=== PATIENT | male | born 1950 | race Caucasian/White ===

== ENCOUNTER 2017-12-14 08:48 | Emergency (ER) | payer MEDICARE, SELFPAY ==
[2017-12-14] VITALS (15 sets, daily range): BP systolic 131–151; BP diastolic 69–77; PULSE 55–67; RESP 12–27; TEMP 36.7; O2SAT 95–97
--- NOTE | 2017-12-14 09:24 | W.ED.GENAD ---
Discharge Plan Disposition Patient Disposition: HOME Condition: Stable Discharge Details Chief Complaint: Dizzy/Sync Clinical Impression: Lightheadedness Primary Care Provider: Lane Womack ED Provider: Theresa Perrin Home Meds and New Rx's Prescriptions: Continue naproxen sodium [Aleve] 220 MG tablet 220 mg PO Q12H PRN RF: 0 aspirin [Aspirin Low-Strength] 81 MG tablet,chewable 81 mg PO DAILY RF: 0 potassium gluconate 99 MG tablet 99 mg PO DAILY RF: 0 amlodipine 10 MG tablet 10 mg PO DAILY Qty: 90 RF: 3 tadalafil [Cialis] 5 MG tablet 5 mg PO DAILY Qty: 90 RF: 4 losartan [Cozaar] 25 MG tablet 50 mg PO DAILY Qty: 180 RF: 4 Discontinued carvedilol 12.5 MG tablet 12.5 mg PO BID Qty: 180 RF: 4 Discharge Instructions Instructions: Near Syncope (ED) Additional Instructions: Problem please return immediately to the emergency department if you develop any new or worsening symptoms or if you become otherwise concerned. It is extremely important that you make it from its was seen in follow-up by Dr. Hogan and Dr. Womack within the next 1-2 weeks. Referrals: Oswaldo Hogan MD [ NON-[facility] STAFF PHYSICIAN] - Lane Womack [Primary Care Provider] - Discharge Data Discharge Date/Time-TO BE ENTERED AT DEPARTURE: 12/14/17 14:[address] Poe is a 66 y/o man with h/o HTN, HLD, pacemaker in place presenting to the emergency department with one month of gradually progressive lightheadedness that he feels coincides with starting carvedilol. On exam Pt is well and non-toxic appearing with benign cardiopulmonary and neuro exam. Concern for dehydration vs metabolic/lyte disturbance vs PE vs other. Doubt ACS. Do not suspect arrhythmia at this time as Pt currently experiencing his typical symptoms while in NSR on monitor. Pacer recently checked per Pt, no buzzing, vibration, or shocks from pacer. Plan for EKG, CXR, screening labs, IVF hydration. Will monitor and reassess. D-dimer elevated, plan for CT chest. On reassessment Pt reports feeling improved. Ambulating about the ED without issue. Pt reports that he would like to stop carvedilol immediately. Lengthy discussion with Pt re: RTED precautions, plan to halve dose of carvedilol to prevent rebound HTN and f/u with cardiology and PCP for complaint of this visit and incidental findings on CT. Pt declined repeat EKG, states that he needs to leave to catch his ride, risks were discussed and he verbalizes understanding of the risks. Pt placed on care management list for outpt f/u. Medical Records Medical records reviewed: Yes I reviewed the patient's medical records. Imaging Data Radiologic Study: Attestation: I personally reviewed and interpreted this imaging study as follows: Radiologist's impression: PA AND LATERAL CHEST: No priors. The heart size and pulmonary vasculature are within normal limits. The lungs are clear and well expanded. Pacing wires are in stable position. The bones are intact. IMPRESSION: No acute pulmonary process. CT SCAN OF THE CHEST: CT angiography was performed with multi slice acquisition and multi planar and 3D reconstruction. CT scan of the chest was performed according to the pulmonary embolus protocol. There is no evidence of a pulmonary embolus. Thoracic aorta is of normal caliber. No dissection or aneurysm. The heart size is within normal limits. No pericardial effusion is seen. No evidence of right ventricular dysfunction. Coronary artery calcifications are present. Pacing wires are in stable position. No significant mediastinal or hilar adenopathy. No pleural effusion, pneumothorax or pulmonary infiltrates are identified. Tracheobronchial tree is unremarkable. Upper abdomen shows a 2.4 cm right adrenal nodule, likely reflecting an adrenal adenoma. There is also an exophytic hyperdense lesion seen on the superior aspect of the right kidney. This may represent a cyst. Renal ultrasound may be obtained for further evaluation. Degenerative changes are seen in the spine. IMPRESSION: 1. No evidence of a pulmonary embolus, thoracic aortic dissection or aneurysm. 2. Incidental findings in the upper abdomen, which include a probable right adrenal nodule and a 1.5 cm exophytic nodule on the left kidney, which may represent a cyst. Ultrasound may be obtained as an outpatient for further evaluation. Lab Data Lab results reviewed: Yes I reviewed the patient's lab results. Laboratory Tests Range/Units 12/14/17 12/14/17 12/14/17 09:49 09:49 09:49 WBC (4.4-10.8) k/cumm 9.10 RBC (4.50-6.00) m/cumm 4.58 Hgb (13.5-17.5) g/dL 14.3 Hct (40.0-50.0) % 41.7 MCV (80-95) fL 91.0 MCH (27.0-33.0) pg 31.2 MCHC (32.0-36.0) g/dL 34.3 RDW (11.8-14.1) % 12.1 Plt Count (130-400) x1000/uL 294 MPV (8.0-11.0) fL 10.6 Immature Gran % 0.2 Neutrophils % 63.8 Lymphocytes % 19.8 Monocytes % 7.8 Eosinophils % 7.4 Basophils % 1.0 Absolute Neutrophils (1.2-6.7) k/cumm 5.81 Absolute Lymphocytes (1.2-3.4) k/cumm 1.80 Absolute Monocytes (0.11-0.7) k/cumm 0.71 H Absolute Eosinophils (0.0-0.7) k/cumm 0.67 Absolute Basophils (0.0-0.2) k/cumm 0.09 D-Dimer (<500) ng/mlFEU 818 H Sodium (136-145) mmol/L 142 Potassium (3.5-5.1) mmol/L 3.8 Chloride (98-107) mmol/L 105 Carbon Dioxide (21.0-32.0) mmol/L 26.6 Anion Gap (3-11) mmol/L 10.4 BUN (7-18) mg/dL 17 Creatinine (0.70-1.30) mg/dL 0.85 Estimated GFR/1.73 m2 (mL/min/1.73m2) >= 60.00 Glucose (70-100) mg/dL 94 Calcium (8.5-10.1) mg/dL 9.2 Magnesium (1.8-2.4) mg/dL 1.9 Total Bilirubin (0.2-1.0) mg/dL 0.6 AST (15-37) U/L 49 H ALT (12-78) U/L 57 Alkaline Phosphatase (46-116) U/L 89 Troponin I (0.00-0.06) ng/mL < 0.02 Total Protein (6.4-8.2) g/dL 7.6 Albumin (3.4-5.0) g/dL 3.7 TSH (0.358-3.74) uIU/mL 2.52 Urine Color (Yellow) Urine Clarity Urine pH (5-8) Ur Specific [place] (1.005-1.025) Urine Protein (Negative) mg/dL Urine Ketones (Negative) mg/dL Urine Blood (Negative) Urine Nitrite (Negative) Urine Bilirubin (Negative) Urine Urobilinogen (Up TO 0.2) EU/dL Ur Leukocyte Esterase (Negative) Urine RBC (0-2) Urine WBC (0-5) HPF Ur Epithelial Cells (Negative) HPF Urine Crystals (Negative) HPF Urine Bacteria (Negative) HPF Urine Casts (Negative) LPF Urine Mucus (Negative) Urine Other (Negative) Ur Culture Indicated? Urine Glucose (Negative) mg/dL Range/Units 12/14/17 10:00 WBC (4.4-10.8) k/cumm RBC (4.50-6.00) m/cumm Hgb (13.5-17.5) g/dL Hct (40.0-50.0) % MCV (80-95) fL MCH (27.0-33.0) pg MCHC (32.0-36.0) g/dL RDW (11.8-14.1) % Plt Count (130-400) x1000/uL MPV (8.0-11.0) fL Immature Gran % Neutrophils % Lymphocytes % Monocytes % Eosinophils % Basophils % Absolute Neutrophils (1.2-6.7) k/cumm Absolute Lymphocytes (1.2-3.4) k/cumm Absolute Monocytes (0.11-0.7) k/cumm Absolute Eosinophils (0.0-0.7) k/cumm Absolute Basophils (0.0-0.2) k/cumm D-Dimer (<500) ng/mlFEU Sodium (136-145) mmol/L Potassium (3.5-5.1) mmol/L Chloride (98-107) mmol/L Carbon Dioxide (21.0-32.0) mmol/L Anion Gap (3-11) mmol/L BUN (7-18) mg/dL Creatinine (0.70-1.30) mg/dL Estimated GFR/1.73 m2 (mL/min/1.73m2) Glucose (70-100) mg/dL Calcium (8.5-10.1) mg/dL Magnesium (1.8-2.4) mg/dL Total Bilirubin (0.2-1.0) mg/dL AST (15-37) U/L ALT (12-78) U/L Alkaline Phosphatase (46-116) U/L Troponin I (0.00-0.06) ng/mL Total Protein (6.4-8.2) g/dL Albumin (3.4-5.0) g/dL TSH (0.358-3.74) uIU/mL Urine Color (Yellow) Yellow Urine Clarity Clear Urine pH (5-8) 6.5 Ur Specific [place] (1.005-1.025) 1.020 Urine Protein (Negative) mg/dL 30 H Urine Ketones (Negative) mg/dL Negative Urine Blood (Negative) Trace-intact H Urine Nitrite (Negative) Negative Urine Bilirubin (Negative) Negative Urine Urobilinogen (Up TO 0.2) EU/dL 0.2 Ur Leukocyte Esterase (Negative) Negative Urine RBC (0-2) 5-10 H Urine WBC (0-5) HPF 0-2 Ur Epithelial Cells (Negative) HPF Rare Urine Crystals (Negative) HPF Negative Urine Bacteria (Negative) HPF Negative Urine Casts (Negative) LPF Negative Urine Mucus (Negative) Trace Urine Other (Negative) Negative Ur Culture Indicated? No Urine Glucose (Negative) mg/dL Negative ECG Data Attestation: I personally reviewed and interpreted this ECG (s) as follows: Interpretation: EKG shows SB at 57 with nl axis, RBBB, non specific ST changes, no Brugada, no HOCM, no long QT, no WPW. non-diagnostic EKG HPI General Mode of arrival: ambulatory. Date/Time Provider Initiated Documentation: 12/14/17 09:24. Limitations to Documentation: no limitations. Information obtained by: patient, RN notes reviewed and old records reviewed. HPI Narrative: Lane Poe is a 66-year-old man with history of hypertension, hyperlipidemia presenting to the emergency department with lightheadedness patient reports that he was prescribed carvedilol and atorvastatin 1 month ago. He reports that since the addition of these medications, he has been feeling lightheaded, increasingly sleepy during the day, and overall unwell. This is been progressive over time. Patient reports that symptoms are much worse when he is standing, and that he feels better when he is sitting or lying down. Patient also reports that he had previously been drinking heavily (he reports half a case of beer per day) and smoking a lot of marijuana, but because of these symptoms that began 1 month ago, patient stopped drinking and using marijuana 2 weeks ago. Patient reports no improvement in his system symptoms since stopping. He denies pain, focal weakness, numbness/tingling, shortness of breath, cough, nausea/vomiting/diarrhea, vertigo. No recent travel. Has been eating and drinking normally. Related Data Home Medications Medication Instructions Recorded Confirmed aspirin [Aspirin Low-Strength] 81 mg PO DAILY tab-cap 07/02/15 12/23/17 naproxen sodium [Aleve] 220 mg PO Q12H PRN tab-cap 07/02/15 12/23/17 potassium gluconate 99 mg PO DAILY 12/10/15 12/23/17 amlodipine 10 mg PO DAILY #90 tab-cap 07/29/17 12/23/17 tadalafil [Cialis] 5 mg PO DAILY #90 tab-cap 10/06/17 12/23/17 losartan [Cozaar] 50 mg PO DAILY #180 tab-cap 10/20/17 12/23/17 Previous Rx's Medication Instructions Recorded amlodipine 10 mg PO DAILY #90 tab-cap 07/29/17 tadalafil [Cialis] 5 mg PO DAILY #90 tab-cap 10/06/17 losartan [Cozaar] 50 mg PO DAILY #180 tab-cap 10/20/17 Allergies Allergy/AdvReac Type Severity Reaction Status Date / Time Penicillins AdvReac Mild hands red Unverified 12/14/17 09:00 and itchy tetracycline AdvReac Mild red and Unverified 12/14/17 09:00 itchy General Stated Complaint: Dizzy/Sync LEONARD: 2 Review of Systems Review of Systems Constitutional: denies fevers Eyes: denies eye pain ENT: denies facial pain, dental pain, sore throat Cardiovascular: denies chest pain, edema Respiratory: denies SOB, cough GI: denies abdominal pain, vomiting, diarrhea : denies flank pain MSK: denies back pain, neck pain, arthralgias, myalgias Skin: denies rash Neuro: denies headaches, focal weakness, reports lightheadedness PFSH Social History Smoking/Tobacco Use Status: Current, status unknown Exam Narrative Exam Narrative: Constitutional: well and [id number], pleasant, conversing normally HENT: head atraumatic, normocephalic normal inspection, mucous membranes moist Eyes: conjunctiva normal, sclera normal, pupils 3mm b/l Neck: no stridor, normal ROM, trachea midline Chest: normal inspection Resp: normal work of breathing, LCTAB Cardio: normal rate, normal rhythm, no murmur appreciated GI: abdomen soft, non-tender, non-distended Back: normal inspection, no rash Skin: warm, dry, normal color, no rash Neuro: alert, not altered, normal tone, motor 5/5 all ext, 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, nl finger to nose, nl heel to gonzalez Ext: no edema Psych: normal mood, normal affect, normal behavior Course Vital Signs Temperature 36.7 C 12/14/17 08:54 Pulse 66 12/14/17 08:54 Respiratory Rate 14 12/14/17 08:54 Blood Pressure 149/72 H 12/14/17 08:54 Pulse Oximetry 97 12/14/17 08:54 Temperature 36.7 C 12/14/17 08:54 Temperature Source Temporal Artery Scan 12/14/17 08:54 Pulse 66 12/14/17 08:54 Respiratory Rate 14 12/14/17 08:54 Respiratory Effort Non-Labored 12/14/17 08:58 Blood Pressure 149/72 H 12/14/17 08:54 Blood Pressure Position Sitting 12/14/17 08:54 Pulse Oximetry 97 12/14/17 08:54 Oxygen Delivery Method Room Air 12/14/17 08:54 Oxygen Flow Rate 0 12/14/17 08:54 Pain Level 0 12/14/17 08:54
--- NOTE | 2017-12-14 09:53 | ED.GENADUL_ITS ---
Discharge Plan Disposition Patient Disposition: HOME Condition: Stable Discharge Details Chief Complaint: Dizzy/Sync Clinical Impression: Lightheadedness Primary Care Provider: Lane Womack ED Provider: Theresa Perrin Home Meds and New Rx's Prescriptions: Continue naproxen sodium [Aleve] 220 MG tablet 220 mg PO Q12H PRN RF: 0 aspirin [Aspirin Low-Strength] 81 MG tablet,chewable 81 mg PO DAILY RF: 0 potassium gluconate 99 MG tablet 99 mg PO DAILY RF: 0 amlodipine 10 MG tablet 10 mg PO DAILY Qty: 90 RF: 3 tadalafil [Cialis] 5 MG tablet 5 mg PO DAILY Qty: 90 RF: 4 losartan [Cozaar] 25 MG tablet 50 mg PO DAILY Qty: 180 RF: 4 Discontinued carvedilol 12.5 MG tablet 12.5 mg PO BID Qty: 180 RF: 4 Discharge Instructions Instructions: Near Syncope (ED) Additional Instructions: Problem please return immediately to the emergency department if you develop any new or worsening symptoms or if you become otherwise concerned. It is extremely important that you make it from its was seen in follow-up by Dr. Hogan and Dr. Womack within the next 1-2 weeks. Referrals: Oswaldo Hogan MD [ NON-[facility] STAFF PHYSICIAN] - Lane Womack [Primary Care Provider] - Discharge Data Discharge Date/Time-TO BE ENTERED AT DEPARTURE: 12/14/17 14:[address] Poe is a 66 y/o man with h/o HTN, HLD, pacemaker in place presenting to the emergency department with one month of gradually progressive lightheadedness that he feels coincides with starting carvedilol. On exam Pt is well and non-toxic appearing with benign cardiopulmonary and neuro exam. Concern for dehydration vs metabolic/lyte disturbance vs PE vs other. Doubt ACS. Do not suspect arrhythmia at this time as Pt currently experiencing his typical symptoms while in NSR on monitor. Pacer recently checked per Pt, no buzzing, vibration, or shocks from pacer. Plan for EKG, CXR, screening labs, IVF hydration. Will monitor and reassess. D-dimer elevated, plan for CT chest. On reassessment Pt reports feeling improved. Ambulating about the ED without issue. Pt reports that he would like to stop carvedilol immediately. Lengthy discussion with Pt re: RTED precautions, plan to halve dose of carvedilol to prevent rebound HTN and f/u with cardiology and PCP for complaint of this visit and incidental findings on CT. Pt declined repeat EKG, states that he needs to leave to catch his ride, risks were discussed and he verbalizes understanding of the risks. Pt placed on care management list for outpt f/u. Medical Records Medical records reviewed: Yes I reviewed the patient's medical records. Imaging Data Radiologic Study: Attestation: I personally reviewed and interpreted this imaging study as follows: Radiologist's impression: PA AND LATERAL CHEST: No priors. The heart size and pulmonary vasculature are within normal limits. The lungs are clear and well expanded. Pacing wires are in stable position. The bones are intact. IMPRESSION: No acute pulmonary process. CT SCAN OF THE CHEST: CT angiography was performed with multi slice acquisition and multi planar and 3D reconstruction. CT scan of the chest was performed according to the pulmonary embolus protocol. There is no evidence of a pulmonary embolus. Thoracic aorta is of normal caliber. No dissection or aneurysm. The heart size is within normal limits. No pericardial effusion is seen. No evidence of right ventricular dysfunction. Coronary artery calcifications are present. Pacing wires are in stable position. No significant mediastinal or hilar adenopathy. No pleural effusion , pneumothorax or pulmonary infiltrates are identified. Tracheobronchial tree is unremarkable. Upper abdomen shows a 2.4 cm right adrenal nodule, likely reflecting an adrenal adenoma. There is also an exophytic hyperdense lesion seen on the superior aspect of the right kidney. This may represent a cyst. Renal ultrasound may be obtained for further evaluation. Degenerative changes are seen in the spine. IMPRESSION: 1. No evidence of a pulmonary embolus, thoracic aortic dissection or aneurysm. 2. Incidental findings in the upper abdomen, which include a probable right adrenal nodule and a 1.5 cm exophytic nodule on the left kidney, which may represent a cyst. Ultrasound may be obtained as an outpatient for further evaluation. Lab Data Lab results reviewed: Yes I reviewed the patient's lab results. Laboratory Tests Range/Units 12/14/17 12/14/17 12/14/17 09:49 09:49 09:49 WBC (4.4-10.8) k/cumm 9.10 RBC (4.50-6.00) m/cumm 4.58 Hgb (13.5-17.5) g/dL 14.3 Hct (40.0-50.0) % 41.7 MCV (80-95) fL 91.0 MCH (27.0-33.0) pg 31.2 MCHC (32.0-36.0) g/dL 34.3 RDW (11.8-14.1) % 12.1 Plt Count (130-400) x1000/uL 294 MPV (8.0-11.0) fL 10.6 Immature Gran % 0.2 Neutrophils % 63.8 Lymphocytes % 19.8 Monocytes % 7.8 Eosinophils % 7.4 Basophils % 1.0 Absolute Neutrophils (1.2-6.7) k/cumm 5.81 Absolute Lymphocytes (1.2-3.4) k/cumm 1.80 Absolute Monocytes (0.11-0.7) k/cumm 0.71 H Absolute Eosinophils (0.0-0.7) k/cumm 0.67 Absolute Basophils (0.0-0.2) k/cumm 0.09 D-Dimer (<500) ng/mlFEU 818 H Sodium (136-145) mmol/L 142 Potassium (3.5-5.1) mmol/L 3.8 Chloride (98-107) mmol/L 105 Carbon Dioxide (21.0-32.0) mmol/L 26.6 Anion Gap (3-11) mmol/L 10.4 BUN (7-18) mg/dL 17 Creatinine (0.70-1.30) mg/dL 0.85 Estimated GFR/1.73 m2 (mL/min/1.73m2) >= 60.00 Glucose (70-100) mg/dL 94 Calcium (8.5-10.1) mg/dL 9.2 Magnesium (1.8-2.4) mg/dL 1.9 Total Bilirubin (0.2-1.0) mg/dL 0.6 AST (15-37) U/L 49 H ALT (12-78) U/L 57 Alkaline Phosphatase (46-116) U/L 89 Troponin I (0.00-0.06) ng/mL < 0.02 Total Protein (6.4-8.2) g/dL 7.6 Albumin (3.4-5.0) g/dL 3.7 TSH (0.358-3.74) uIU/mL 2.52 Urine Color (Yellow) Urine Clarity Urine pH (5-8) Ur Specific [place] (1.005-1.025) Urine Protein (Negative) mg/dL Urine Ketones (Negative) mg/dL Urine Blood (Negative) Urine Nitrite (Negative) Urine Bilirubin (Negative) Urine Urobilinogen (Up TO 0.2) EU/dL Ur Leukocyte Esterase (Negative) Urine RBC (0-2) Urine WBC (0-5) HPF Ur Epithelial Cells (Negative) HPF Urine Crystals (Negative) HPF Urine Bacteria (Negative) HPF Urine Casts (Negative) LPF Urine Mucus (Negative) Urine Other (Negative) Ur Culture Indicated? Urine Glucose (Negative) mg/dL Range/Units 12/14/17 10:00 WBC (4.4-10.8) k/cumm RBC (4.50-6.00) m/cumm Hgb (13.5-17.5) g/dL Hct (40.0-50.0) % MCV (80-95) fL MCH (27.0-33.0) pg MCHC (32.0-36.0) g/dL RDW (11.8-14.1) % Plt Count (130-400) x1000/uL MPV (8.0-11.0) fL Immature Gran % Neutrophils % Lymphocytes % Monocytes % Eosinophils % Basophils % Absolute Neutrophils (1.2-6.7) k/cumm Absolute Lymphocytes (1.2-3.4) k/cumm Absolute Monocytes (0.11-0.7) k/cumm Absolute Eosinophils (0.0-0.7) k/cumm Absolute Basophils (0.0-0.2) k/cumm D-Dimer (<500) ng/mlFEU Sodium (136-145) mmol/L Potassium (3.5-5.1) mmol/L Chloride (98-107) mmol/L Carbon Dioxide (21.0-32.0) mmol/L Anion Gap (3-11) mmol/L BUN (7-18) mg/dL Creatinine (0.70-1.30) mg/dL Estimated GFR/1.73 m2 (mL/min/1.73m2) Glucose (70-100) mg/dL Calcium (8.5-10.1) mg/dL Magnesium (1.8-2.4) mg/dL Total Bilirubin (0.2-1.0) mg/dL AST (15-37) U/L ALT (12-78) U/L Alkaline Phosphatase (46-116) U/L Troponin I (0.00-0.06) ng/mL Total Protein (6.4-8.2) g/dL Albumin (3.4-5.0) g/dL TSH (0.358-3.74) uIU/mL Urine Color (Yellow) Yellow Urine Clarity Clear Urine pH (5-8) 6.5 Ur Specific [place] (1.005-1.025) 1.020 Urine Protein (Negative) mg/dL 30 H Urine Ketones (Negative) mg/dL Negative Urine Blood (Negative) Trace-intact H Urine Nitrite (Negative) Negative Urine Bilirubin (Negative) Negative Urine Urobilinogen (Up TO 0.2) EU/dL 0.2 Ur Leukocyte Esterase (Negative) Negative Urine RBC (0-2) 5-10 H Urine WBC (0-5) HPF 0-2 Ur Epithelial Cells (Negative) HPF Rare Urine Crystals (Negative) HPF Negative Urine Bacteria (Negative) HPF Negative Urine Casts (Negative) LPF Negative Urine Mucus (Negative) Trace Urine Other (Negative) Negative Ur Culture Indicated? No Urine Glucose (Negative) mg/dL Negative ECG Data Attestation: I personally reviewed and interpreted this ECG (s) as follows: Interpretation: EKG shows SB at 57 with nl axis, RBBB, non specific ST changes, no Brugada, no HOCM, no long QT, no WPW. non-diagnostic EKG HPI General Mode of arrival: ambulatory . Date/Time Provider Initiated Documentation: 12/14/17 09:24 . Limitations to Documentation: no limitations . Information obtained by: patient, RN notes reviewed and old records reviewed . HPI Narrative: Lane Poe is a 66-year-old man with history of hypertension, hyperlipidemia presenting to the emergency department with lightheadedness patient reports that he was prescribed carvedilol and atorvastatin 1 month ago. He reports that since the addition of these medications, he has been feeling lightheaded, increasingly sleepy during the day, and overall unwell. This is been progressive over time. Patient reports that symptoms are much worse when he is standing, and that he feels better when he is sitting or lying down. Patient also reports that he had previously been drinking heavily (he reports half a case of beer per day) and smoking a lot of marijuana, but because of these symptoms that began 1 month ago, patient stopped drinking and using marijuana 2 weeks ago. Patient reports no improvement in his system symptoms since stopping. He denies pain, focal weakness, numbness/tingling, shortness of breath, cough, nausea/vomiting/diarrhea, vertigo. No recent travel. Has been eating and drinking normally. Related Data Home Medications Medication Instructions Recorded Confirmed aspirin [Aspirin Low-Strength] 81 mg PO DAILY tab-cap 07/02/15 12/23/17 naproxen sodium [Aleve] 220 mg PO Q12H PRN tab-cap 07/02/15 12/23/17 potassium gluconate 99 mg PO DAILY 12/10/15 12/23/17 amlodipine 10 mg PO DAILY #90 tab-cap 07/29/17 12/23/17 tadalafil [Cialis] 5 mg PO DAILY #90 tab-cap 10/06/17 12/23/17 losartan [Cozaar] 50 mg PO DAILY #180 tab-cap 10/20/17 12/23/17 Previous Rx's Medication Instructions Recorded amlodipine 10 mg PO DAILY #90 tab-cap 07/29/17 tadalafil [Cialis] 5 mg PO DAILY #90 tab-cap 10/06/17 losartan [Cozaar] 50 mg PO DAILY #180 tab-cap 10/20/17 Allergies Allergy/AdvReac Type Severity Reaction Status Date / Time Penicillins AdvReac Mild hands red Unverified 12/14/17 09:00 and itchy tetracycline AdvReac Mild red and Unverified 12/14/17 09:00 itchy General Stated Complaint: Dizzy/Sync LEONARD: 2 Review of Systems Review of Systems Constitutional: denies fevers Eyes: denies eye pain ENT: denies facial pain, dental pain, sore throat Cardiovascular: denies chest pain, edema Respiratory: denies SOB, cough GI: denies abdominal pain, vomiting, diarrhea : denies flank pain MSK: denies back pain, neck pain, arthralgias, myalgias Skin: denies rash Neuro: denies headaches, focal weakness, reports lightheadedness PFSH Social History Smoking/Tobacco Use Status: Current, status unknown Exam Narrative Exam Narrative: Constitutional: well and [id number], pleasant, conversing normally HENT: head atraumatic, normocephalic normal inspection, mucous membranes moist Eyes: conjunctiva normal, sclera normal, pupils 3mm b/l Neck: no stridor, normal ROM, trachea midline Chest: normal inspection Resp: normal work of breathing, LCTAB Cardio: normal rate, normal rhythm, no murmur appreciated GI: abdomen soft, non-tender, non-distended Back: normal inspection, no rash Skin: warm, dry, normal color, no rash Neuro: alert, not altered, normal tone, motor 5/5 all ext, 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, nl finger to nose, nl heel to gonzalez Ext: no edema Psych: normal mood, normal affect, normal behavior Course Vital Signs Temperature 36.7 C 12/14/17 08:54 Pulse 66 12/14/17 08:54 Respiratory Rate 14 12/14/17 08:54 Blood Pressure 149/72 H 12/14/17 08:54 Pulse Oximetry 97 12/14/17 08:54 Temperature 36.7 C 12/14/17 08:54 Temperature Source Temporal Artery Scan 12/14/17 08:54 Pulse 66 12/14/17 08:54 Respiratory Rate 14 12/14/17 08:54 Respiratory Effort Non-Labored 12/14/17 08:58 Blood Pressure 149/72 H 12/14/17 08:54 Blood Pressure Position Sitting 12/14/17 08:54 Pulse Oximetry 97 12/14/17 08:54 Oxygen Delivery Method Room Air 12/14/17 08:54 Oxygen Flow Rate 0 12/14/17 08:54 Pain Level 0 12/14/17 08:54
[2017-12-14 10:10] LABS: Abs Immature Grans 0.02 k/cumm (0.0-0.09); Absolute Basophil Count 0.09 k/cumm (0.0-0.2); Absolute Eosinophil Count 0.67 k/cumm (0.0-0.7); Absolute Monocyte Count 0.71 k/cumm (0.11-0.7); Absolute Neutrophil Count 5.81 k/cumm (1.2-6.7); Eosinophils % 7.4; HCT 41.7 % (40.0-50.0); HGB 14.3 g/dL (13.5-17.5); Immature Grans % 0.2; Lymphocytes % 19.8; Mean Corp. HGB Concentration 34.3 g/dL (32.0-36.0); Mean Corpuscular Hemoglobin 31.2 pg (27.0-33.0); Mean Platelet Volume 10.6 fL (8.0-11.0); Monocytes % 7.8; Neutrophils % 63.8; Platelet Count 294 x1000/uL (130-400); RBC 4.58 m/cumm (4.50-6.00); RBC Distribution Width 12.1 % (11.8-14.1)
--- NOTE | 2017-12-14 10:20 | DI.RAD_ITS ---
SYMPTOMS/DIAGNOSIS: GENERALIZED WEAKNESS, PRE SYNCOPE PA AND LATERAL CHEST: No priors. The heart size and pulmonary vasculature are within normal limits. The lungs are clear and well expanded. Pacing wires are in stable position. The bones are intact. IMPRESSION: No acute pulmonary process.
[2017-12-14 10:27] LABS: Bilirubin Negative (Negative); Blood Trace-intact (Negative); Clarity Clear; Glucose Negative (Negative); Ketones Negative (Negative); Leukocyte Esterase Negative (Negative); Nitrite Negative (Negative); Urobilinogen 0.2 EU/dL (Up TO 0.2); pH 6.5 (5-8)
[2017-12-14 10:30] LABS: ALT 57 U/L (12-78); AST 49 U/L (15-37); Albumin 3.7 g/dL (3.4-5.0); Alkaline Phosphatase 89 U/L (46-116); Anion Gap 10.4 mmol/L (3-11); BUN 17 mg/dL (7-18); Bilirubin, Total 0.6 mg/dL (0.2-1.0); CO2 26.6 mmol/L (21.0-32.0); CREATININE 0.85 mg/dL (0.70-1.30); Calcium 9.2 mg/dL (8.5-10.1); Chloride 105 mmol/L (98-107); Glucose 94 mg/dL (70-100); Magnesium 1.9 mg/dL (1.8-2.4); Potassium 3.8 mmol/L (3.5-5.1); Sodium 142 mmol/L (136-145); TSH (W/Ref FT4) 2.52 uIU/mL (0.358-3.74); Total Protein 7.6 g/dL (6.4-8.2)
[2017-12-14 10:33] LABS: Troponin I < 0.02 ng/mL (0.00-0.06)
[2017-12-14 10:51] LABS: D-Dimer 818 ng/mlFEU (<500)
[2017-12-14 11:02] LABS: Epithelial Cells Rare HPF (Negative); WBC 0-2 HPF (0-5)
[2017-12-14 11:03] LABS: Bacteria Negative HPF (Negative); C & S Indicated? No; Casts Negative LPF (Negative); Crystals Negative HPF (Negative); Mucus Trace (Negative); Other Cells Negative (Negative)
--- NOTE | 2017-12-14 11:32 | DI.CT_ITS ---
SYMPTOMS/DIAGNOSIS: FATIGUE, LIGHTHEADEDNESS, ELEVATED D-DIMER CT SCAN OF THE CHEST: CT angiography was performed with multi slice acquisition and multi planar and 3D reconstruction. CT scan of the chest was performed according to the pulmonary embolus protocol. There is no evidence of a pulmonary embolus. Thoracic aorta is of normal caliber. No dissection or aneurysm. The heart size is within normal limits. No pericardial effusion is seen. No evidence of right ventricular dysfunction. Coronary artery calcifications are present. Pacing wires are in stable position. No significant mediastinal or hilar adenopathy. No pleural effusion , pneumothorax or pulmonary infiltrates are identified. Tracheobronchial tree is unremarkable. Upper abdomen shows a 2.4 cm right adrenal nodule, likely reflecting an adrenal adenoma. There is also an exophytic hyperdense lesion seen on the superior aspect of the right kidney. This may represent a cyst. Renal ultrasound may be obtained for further evaluation. Degenerative changes are seen in the spine. IMPRESSION: 1. No evidence of a pulmonary embolus, thoracic aortic dissection or aneurysm. 2. Incidental findings in the upper abdomen, which include a probable right adrenal nodule and a 1.5 cm exophytic nodule on the left kidney, which may represent a cyst. Ultrasound may be obtained as an outpatient for further evaluation. These findings were discussed with the Emergency Department on the date of the examination.
[2017-12-14] MEDS: Omnipaque 350 MG/ML 100 ML BTL IJ (12:11)
[2017-12-14] MEDS: Cyanocobalamin 1000 MCG/ML VIAL IM/SC (14:24)
--- NOTE | 2017-12-14 15:23 | PDOC.ERCMPRO ---
Care Management Progress Note 12/14/17-Pt seen for lightheadedness by Dr. Naveen Perrin. Request for f/u faxed to Dr.J. Womack and Cardiology.
== END 2017-12-14 14:26 | disposition home or self-care (01) ==
PROVIDERS: Emergency Provider Student in an Organized Health Care Education/Training Program; PCP Family Medicine
DX: R42 Dizziness and giddiness (principal); R79.1 Abnormal coagulation profile; R93.421 Abnormal radiologic findings on diagnostic imaging of right kidney; I10 Essential (primary) hypertension; I25.10 Atherosclerotic heart disease of native coronary artery without angina pectoris; Z95.5 Presence of coronary angioplasty implant and graft; Z95.810 Presence of automatic (implantable) cardiac defibrillator
CPT/HCPCS: 71275; 80053; 93005; 96372; 99285; 71046; 81003; 81015; 83735; 84443; 84484; 85025; 85379; 93010; J3420; J3490

== ENCOUNTER 2017-12-21 00:47 | Outpatient (CLI) | payer MEDICARE, SELFPAY ==
--- NOTE | 2017-12-21 13:06 | DI.US_ITS ---
SYMPTOM/DIAGNOSIS: RENAL CYST, N28.1, NODULE VS CYST RT KIDNEY RENAL ULTRASOUND: 12/21 Renal ultrasound was performed according to the usual protocol. Note is made of 17 mm in diameter exophytic cyst of the upper pole of the left kidney corresponding to the mildly hyperdense mass identified on CT of 12/14/17. No evidence of a solid mass by ultrasound criteria. Small cortical cyst is also seen in the lower pole of the left kidney. No other renal mass identified. No hydronephrosis. Urinary bladder is unremarkable in appearance with pre and post void urinary bladder volume measurements 111 cc and 0 cc respectively. Prostatic volume is calculated at 28 cc. CONCLUSION: Hyperdense homogeneous lesion of the upper pole of the left kidney seen on CT corresponds to a simple cyst identified ultrasonographically. No additional significant finding.
== END 2017-12-21 01:07 ==
PROVIDERS: PCP Family Medicine; Visit Provider Family Medicine
DX: N28.1 Cyst of kidney, acquired (principal); I25.10 Atherosclerotic heart disease of native coronary artery without angina pectoris; Z95.5 Presence of coronary angioplasty implant and graft; Z95.0 Presence of cardiac pacemaker; I50.30 Unspecified diastolic (congestive) heart failure; I11.0 Hypertensive heart disease with heart failure; I73.9 Peripheral vascular disease, unspecified; R53.1 Weakness
CPT/HCPCS: 76770; 99213

== ENCOUNTER 2017-12-23 12:08 | Emergency (ER) | payer MEDICARE, SELFPAY ==
[2017-12-23 12:15] VITALS: BP 135/73; PULSE 80; RESP 16; TEMP 36.6; O2SAT 97
--- NOTE | 2017-12-23 12:24 | ED.GENADUL_ITS ---
Discharge Plan Disposition Patient Disposition: HOME Condition: Good Discharge Details Chief Complaint: Laceration Clinical Impression: Skin tear Primary Care Provider: Lane Womack ED Provider: Tahmina Simms Home Meds and New Rx's Prescriptions: Continue naproxen sodium [Aleve] 220 MG tablet 220 mg PO Q12H PRN RF: 0 aspirin [Aspirin Low-Strength] 81 MG tablet,chewable 81 mg PO DAILY RF: 0 potassium gluconate 99 MG tablet 99 mg PO DAILY RF: 0 amlodipine 10 MG tablet 10 mg PO DAILY Qty: 90 RF: 3 losartan [Cozaar] 25 MG tablet 50 mg PO DAILY Qty: 180 RF: 4 No Action tadalafil [Cialis] 5 MG tablet 5 mg PO DAILY Qty: 90 RF: 4 Discharge Instructions Instructions: Skin Tear (ED) Additional Instructions: Keep current dressing on for the next 24 hours. May then remove the dressing. Please monitor for signs of infection including redness, warmth, drainage, increased pain, fever/chills. If these arise please seek care urgently once again. Please use nonadhesive dressings as needed to cover the wound. May wash and running water but please do not soak as this will increase her risk of infection. Follow-up with primary care as needed Referrals: Lane Womack [Primary Care Provider] - Medical Decision Making Patient is a 67 year old male presenting today with chief complaint of bleeding wound on the dorsal aspect of the left hand. He is noted to have a 12mm circumfrential area of skin tear. Appears very superficial, no subcutaneous tissue noted. He reports that he has a bandaid over a small opening in the proximal aspect of the thumb. REprots that he suffered current wound when he removed the bandaid 3 hours ago. Has been applying pressure to the area but continues to endorse bleeding. Bleeding is a slow ooze. Sensation intact. Full ROM. 2+ distal pulses. No signs of infection noted. Patient reports that his last tetanus was updated one year ago. Patient is not anticoagulated. Patient treated with gelfoam over the wound followed by compressive dressing. ADvised he keep this on for the next 24 hours. Discussed signs and symptoms of infection and when to seek care urgently once again. Also discussed how to tend ot the wound should bleeding occur once again. Advised he may return at any time with new/worsening symptoms. All of his questions and concerns were addressed, he is in agreement with this plan. Advised no further adhesive be applied to his hand. HPI General Mode of arrival: ambulatory . Date/Time Provider Initiated Documentation: 12/23/17 12:14 . Limitations to Documentation: no limitations . Information obtained by: patient . History of Present Illness 67 year old M presents to the emergency department with the chief complaint of bleeding left hand abrasion, described as mild, with intensity rated at 1 ( denies any pain at this time). and is localized to the left. Patient started experiencing this hour(s) (3) and it has been constant. Patient notes no other symptoms.; denies fever/chills and rash. Patient did receive the following treatments prior to arrival, other (has been applying pressure to wound) Related Data Home Medications Medication Instructions Recorded Confirmed aspirin [Aspirin Low-Strength] 81 mg PO DAILY tab-cap 07/02/15 12/23/17 naproxen sodium [Aleve] 220 mg PO Q12H PRN tab-cap 07/02/15 12/23/17 potassium gluconate 99 mg PO DAILY 12/10/15 12/23/17 amlodipine 10 mg PO DAILY #90 tab-cap 07/29/17 12/23/17 tadalafil [Cialis] 5 mg PO DAILY #90 tab-cap 10/06/17 12/23/17 losartan [Cozaar] 50 mg PO DAILY #180 tab-cap 10/20/17 12/23/17 Previous Rx's Medication Instructions Recorded amlodipine 10 mg PO DAILY #90 tab-cap 07/29/17 tadalafil [Cialis] 5 mg PO DAILY #90 tab-cap 10/06/17 losartan [Cozaar] 50 mg PO DAILY #180 tab-cap 10/20/17 Allergies Allergy/AdvReac Type Severity Reaction Status Date / Time Penicillins AdvReac Mild hands red Unverified 12/14/17 09:00 and itchy tetracycline AdvReac Mild red and Unverified 12/14/17 09:00 itchy General Stated Complaint: Laceration LEONARD: 4 Review of Systems Constitutional Denies chills and Denies fever(s) Musculoskeletal Reports as per HPI, Denies numbness and Denies tingling Integumentary/Breasts Reports as per HPI Neurologic Denies numbness and Denies tingling PFSH Social History Smoking/Tobacco Use Status: Current, status unknown Exam Const General: cooperative, healthy appearing, comfortable, no acute distress, well developed and well groomed Nutritional Appearance: average body habitus Orientation: alert and awake Resp Effort & Inspection: normal respiratory effort, able to speak in complete sentences and no respiratory distress Cardio Rate: regular rate Rhythm: regular rhythm Skin Lesions: lesion noted (patient has a 12mm cicumfrential area of skin tear, appears very superficial with slow ooze of blood. No surrounding erythema, warmth. No pain with palpation) Rashes: no rashes Neuro General: alert and awake Cognition: normal cognition Speech: speech normal Gait: normal gait Psych Appearance: grossly normal and well kempt Mental Status: mental status grossly normal Speech and Movement: speech and movement normal Course Vital Signs Temperature 36.6 C 12/23/17 12:15 Pulse 80 12/23/17 12:15 Respiratory Rate 16 12/23/17 12:15 Blood Pressure 135/73 12/23/17 12:15 Pulse Oximetry 97 12/23/17 12:15 Temperature 36.6 C 12/23/17 12:15 Temperature Source Temporal Artery Scan 12/23/17 12:15 Pulse 80 12/23/17 12:15 Respiratory Rate 16 12/23/17 12:15 Respiratory Effort 12/23/17 12:17 Blood Pressure 135/73 12/23/17 12:15 Blood Pressure Position Sitting 12/23/17 12:15 Pulse Oximetry 97 12/23/17 12:15 Oxygen Delivery Method Room Air 12/23/17 12:15 Oxygen Flow Rate 0 12/23/17 12:15 Pain Level 0 12/23/17 12:15
== END 2017-12-23 12:49 | disposition home or self-care (01) ==
LOC: ER 12:56
PROVIDERS: Emergency Provider Physician Assistant; PCP Family Medicine
DX: S61.412A Laceration without foreign body of left hand, initial encounter (principal); I10 Essential (primary) hypertension
CPT/HCPCS: 99282

== ENCOUNTER → 2017-12-30 10:05 | Outpatient (BNVA) | payer MEDICARE, SELFPAY | PROVIDERS: PCP Family Medicine; Visit Provider Internal Medicine Cardiovascular Disease | DX: I49.5 Sick sinus syndrome (principal); Z45.018 Encounter for adjustment and management of other part of cardiac pacemaker; I10 Essential (primary) hypertension | CPT/HCPCS: 93280; 99211; 99213 ==

== ENCOUNTER 2018-02-08 10:17 | Outpatient (CLI) | payer MEDICARE, SELFPAY | END 2018-02-08 10:37 | PROVIDERS: PCP Family Medicine; Visit Provider Internal Medicine Interventional Cardiology | DX: I25.10 Atherosclerotic heart disease of native coronary artery without angina pectoris (principal); R53.1 Weakness; R41.9 Unspecified symptoms and signs involving cognitive functions and awareness; I73.9 Peripheral vascular disease, unspecified; I10 Essential (primary) hypertension | CPT/HCPCS: 93005; 93010; 99213 ==

== ENCOUNTER 2018-02-16 12:05 | Outpatient (REF) | payer MEDICARE, SELFPAY ==
[2018-02-16 19:12] LABS: ALT 34 U/L (12-78); AST 24 U/L (15-37); Albumin 4.1 g/dL (3.4-5.0); Alkaline Phosphatase 86 U/L (46-116); Anion Gap 14.1 mmol/L (3-11); BUN 25 mg/dL (7-18); Bilirubin, Total 0.5 mg/dL (0.2-1.0); CO2 22.9 mmol/L (21.0-32.0); CREATININE 1.09 mg/dL (0.70-1.30); Calcium 9.7 mg/dL (8.5-10.1); Chloride 104 mmol/L (98-107); Glucose 91 mg/dL (70-100); Potassium 4.1 mmol/L (3.5-5.1); Sodium 141 mmol/L (136-145); Total Protein 7.3 g/dL (6.4-8.2); Vitamin B12 807 pg/mL (193-986)
== END 2018-02-16 12:25 ==
LOC: NCHCN 12:05
PROVIDERS: PCP Family Medicine; Visit Provider Family Medicine
DX: I25.10 Atherosclerotic heart disease of native coronary artery without angina pectoris (principal); R42 Dizziness and giddiness; N28.1 Cyst of kidney, acquired; I10 Essential (primary) hypertension
CPT/HCPCS: 80053; 82607

== ENCOUNTER → 2018-03-02 11:28 | Outpatient (BNVA) | payer MEDICARE, SELFPAY | PROVIDERS: PCP Family Medicine; Visit Provider Nurse Practitioner Primary Care | DX: R69 Illness, unspecified (principal) ==

== ENCOUNTER 2018-03-02 11:30 | Outpatient (CLI) | payer MEDICARE, SELFPAY | END 2018-03-02 11:50 | PROVIDERS: PCP Family Medicine; Visit Provider Nurse Practitioner Primary Care | DX: I25.810 Atherosclerosis of coronary artery bypass graft(s) without angina pectoris (principal); Z95.818 Presence of other cardiac implants and grafts; I49.5 Sick sinus syndrome; Z45.018 Encounter for adjustment and management of other part of cardiac pacemaker; I10 Essential (primary) hypertension | CPT/HCPCS: 93288; 99213 ==

== ENCOUNTER 2018-03-08 09:20 | Outpatient (CLI) | payer MEDICARE, SELFPAY | END 2018-03-08 09:40 | PROVIDERS: PCP Family Medicine; Visit Provider Internal Medicine Interventional Cardiology | DX: I25.10 Atherosclerotic heart disease of native coronary artery without angina pectoris (principal); Z95.818 Presence of other cardiac implants and grafts; Z95.0 Presence of cardiac pacemaker; R53.1 Weakness; I73.9 Peripheral vascular disease, unspecified | CPT/HCPCS: 99213 ==

== ENCOUNTER 2018-04-05 12:10 | Outpatient (CLI) | payer MEDICARE, SELFPAY ==
--- NOTE | 2018-04-05 12:33 | DI.RAD_ITS ---
SYMPTOM/DIAGNOSIS: ARTHRITIS, RT KNEE PAIN, M13.861 RIGHT KNEE: Comparison is made with 02/04/16. A joint effusion is seen. There is spurring at the articular aspect of the patella. There is also prominent spurring at the lateral femoral tibial joint which shows some irregularity at the lateral femoral condyle. The medial femoral tibial joint space is well maintained. There is mild spurring at the tibial spines. Vascular calcifications are seen. IMPRESSION: Degenerative changes and joint effusion.
== END 2018-04-05 12:30 ==
PROVIDERS: PCP Family Medicine; Visit Provider Family Medicine
DX: M25.561 Pain in right knee (principal); M25.461 Effusion, right knee; M16.11 Unilateral primary osteoarthritis, right hip
CPT/HCPCS: 73562

== ENCOUNTER 2018-04-19 09:31 | Outpatient (CLI) | payer MEDICARE, MEDICAID, SELFPAY | END 2018-04-19 09:51 | PROVIDERS: PCP Family Medicine; Visit Provider Internal Medicine Interventional Cardiology | DX: I25.10 Atherosclerotic heart disease of native coronary artery without angina pectoris (principal); R53.1 Weakness; I73.9 Peripheral vascular disease, unspecified; I10 Essential (primary) hypertension | CPT/HCPCS: 93005; 93010; 99213 ==

== ENCOUNTER → 2018-06-17 14:26 | Outpatient (BNVA) | payer MEDICARE, MEDICAID, SELFPAY | PROVIDERS: PCP Family Medicine; Visit Provider Nurse Practitioner Primary Care | DX: I49.5 Sick sinus syndrome (principal); I25.10 Atherosclerotic heart disease of native coronary artery without angina pectoris; I10 Essential (primary) hypertension; Z45.018 Encounter for adjustment and management of other part of cardiac pacemaker | CPT/HCPCS: 93288; 99213 ==

== ENCOUNTER 2018-08-03 13:38 | Outpatient (CLI) | payer MEDICARE, SELFPAY ==
[2018-08-03 15:16] LABS: ALT 48 U/L (12-78); AST 31 U/L (15-37); Albumin 3.8 g/dL (3.4-5.0); Alkaline Phosphatase 77 U/L (46-116); Anion Gap 8.6 mmol/L (3-11); BUN 19 mg/dL (7-18); Bilirubin, Total 0.4 mg/dL (0.2-1.0); CO2 29.4 mmol/L (21.0-32.0); CREATININE 1.01 mg/dL (0.70-1.30); Calcium 9.5 mg/dL (8.5-10.1); Chloride 101 mmol/L (98-107); Ferritin 258 ng/mL (8-388); Glucose 93 mg/dL (70-100); Potassium 4.4 mmol/L (3.5-5.1); Sodium 139 mmol/L (136-145); TSH 2.44 uIU/mL (0.358-3.74); Total Protein 7.4 g/dL (6.4-8.2)
== END 2018-08-03 13:58 ==
PROVIDERS: Nurse Practitioner; PCP Family Medicine; Visit Provider Internal Medicine
DX: R53.83 Other fatigue (principal); M25.50 Pain in unspecified joint; I10 Essential (primary) hypertension
CPT/HCPCS: 36415; 80053; 82728; 84443

== ENCOUNTER 2018-08-09 08:54 | Outpatient (CLI) | payer MEDICARE, SELFPAY | END 2018-08-09 09:14 | PROVIDERS: PCP Family Medicine; Visit Provider Internal Medicine Interventional Cardiology | DX: I10 Essential (primary) hypertension (principal); Z95.0 Presence of cardiac pacemaker; R53.1 Weakness; I73.9 Peripheral vascular disease, unspecified; I25.10 Atherosclerotic heart disease of native coronary artery without angina pectoris | CPT/HCPCS: 93005; 93010; 99213 ==

== ENCOUNTER → 2018-10-05 13:59 | Outpatient (BNVA) | payer MEDICARE, SELFPAY | PROVIDERS: PCP Family Medicine; Visit Provider Nurse Practitioner Family | DX: I49.5 Sick sinus syndrome (principal); I25.10 Atherosclerotic heart disease of native coronary artery without angina pectoris; Z45.018 Encounter for adjustment and management of other part of cardiac pacemaker; I10 Essential (primary) hypertension; Z95.818 Presence of other cardiac implants and grafts | CPT/HCPCS: 93288; 99213 ==

== ENCOUNTER → 2018-12-07 12:26 | Outpatient (BNVA) | payer MEDICARE, SELFPAY | PROVIDERS: PCP Family Medicine; Visit Provider Nurse Practitioner Primary Care | DX: I49.5 Sick sinus syndrome (principal); I10 Essential (primary) hypertension; Z45.018 Encounter for adjustment and management of other part of cardiac pacemaker; I25.10 Atherosclerotic heart disease of native coronary artery without angina pectoris; Z95.818 Presence of other cardiac implants and grafts | CPT/HCPCS: 93288; 99214 ==

== ENCOUNTER 2019-01-18 01:50 | Outpatient (CLI) | payer MEDICARE, SELFPAY ==
--- NOTE | 2019-01-18 14:30 | DI.CTLCSR_ITS ---
EXAM: CT CHEST LUNG CANCER SCREEN CLINICAL HISTORY: FORMER SMOKER Z87.891 TECHNIQUE: The exam was performed according to the usual protocol. FINDINGS: There is atherosclerosis of the thoracic aorta. Heart size is within normal limits. No pericardial ef fusion is present. Coronary artery calcifications are present. No significant thoracic adenopathy is present. No pleural effusion or pneumothorax is identified. The pacing wires are stable. There ar e a few small noncalcified pulmonary nodules. None is larger than the 3.9 mm nodule in the lateral a spect of the right lower lobe. No focal consolidating infiltrates are present. The tracheobronchial tree is unremarkable. There are degenerative changes seen in the spine. IMPRESSION: Small noncalcified pulmonary nodules. The largest measures 3.9 mm. Lung RADS Cat 2 - Benign Appearance / Behavior: Nodules with a very low likelihood of becoming a clin ically active cancer due to size or lack of growth
== END 2019-01-18 02:10 ==
PROVIDERS: PCP Family Medicine; Visit Provider Family Medicine
DX: Z12.2 Encounter for screening for malignant neoplasm of respiratory organs (principal); R91.8 Other nonspecific abnormal finding of lung field; I70.0 Atherosclerosis of aorta; Z95.0 Presence of cardiac pacemaker; Z87.891 Personal history of nicotine dependence
CPT/HCPCS: G0297

== ENCOUNTER → 2019-08-30 10:50 | Outpatient (BNVA) | payer MEDICARE, SELFPAY | PROVIDERS: PCP Family Medicine; Referring Provider Family Medicine; Visit Provider Internal Medicine Cardiovascular Disease | DX: I49.5 Sick sinus syndrome (principal); I10 Essential (primary) hypertension | CPT/HCPCS: 99204; 99215 ==

== ENCOUNTER → 2019-09-07 14:42 | Outpatient (BNVA) | payer MEDICARE, SELFPAY | PROVIDERS: PCP Family Medicine; Referring Provider Family Medicine; Visit Provider Physician Assistant | DX: I49.5 Sick sinus syndrome (principal); Z45.018 Encounter for adjustment and management of other part of cardiac pacemaker | CPT/HCPCS: 93280; 99211; 99213 ==

== ENCOUNTER 2019-09-20 02:41 | Outpatient (CLI) | payer MEDICARE, SELFPAY ==
[2019-09-20 14:02] LABS: HCT 43.5 % (40.0-50.0); HGB 14.8 g/dL (13.5-17.5); Mean Corpuscular Hemoglobin 31.2 pg (27.0-33.0); Mean Corpuscular Volume 91.8 fL (80-95); Mean Platelet Volume 9.4 fL (8.0-11.0); Platelet Count 289 x1000/uL (130-400); RBC 4.74 m/cumm (4.50-6.00); RBC Distribution Width 13.1 % (11.8-14.1); White Blood Cell Count 10.69 k/cumm (4.4-10.8)
[2019-09-20 14:50] LABS: ALT 45 U/L (16-63); AST 30 U/L (15-37); Albumin 4.3 g/dL (3.4-5.0); Alkaline Phosphatase 63 U/L (46-116); Anion Gap 11.1 mmol/L (3-11); BUN 18 mg/dL (7-18); Bilirubin, Total 0.5 mg/dL (0.2-1.0); CO2 24.9 mmol/L (21.0-32.0); Calcium 9.9 mg/dL (8.5-10.1); Chloride 103 mmol/L (98-107); Glucose 89 mg/dL (74-106); Potassium 4.3 mmol/L (3.5-5.1); Sodium 139 mmol/L (136-145); Total Protein 7.6 g/dL (6.4-8.2)
== END 2019-09-20 03:01 ==
PROVIDERS: PCP Family Medicine; Visit Provider Family Medicine
DX: I10 Essential (primary) hypertension (principal); K92.1 Melena; F10.10 Alcohol abuse, uncomplicated; R39.9 Unspecified symptoms and signs involving the genitourinary system
CPT/HCPCS: 36415; 80053; 85027

== ENCOUNTER → 2019-10-05 13:55 | Outpatient (BNVA) | payer MEDICARE, SELFPAY | PROVIDERS: PCP Family Medicine; Referring Provider Family Medicine; Visit Provider Surgery | DX: Z12.11 Encounter for screening for malignant neoplasm of colon (principal); Z86.010 Personal history of colon polyps; Z95.0 Presence of cardiac pacemaker; I49.5 Sick sinus syndrome; J44.9 Chronic obstructive pulmonary disease, unspecified; I10 Essential (primary) hypertension | CPT/HCPCS: 99202 ==

== ENCOUNTER 2019-10-20 06:14 | Day surgery (SDC) | payer MEDICARE, SELFPAY ==
[2019-10-20 06:20] VITALS: BP 173/100; PULSE 77; RESP 16; TEMP 36.1; O2SAT 97
[2019-10-20] MEDS: Lactated Ringers 1,000 ML 80 ML IV (06:43)
--- NOTE | 2019-10-20 07:50 | BOWEL_PTH ---
PATIENT: Lane Poe LOC: [facility] U#:[id number] AGE/SX: 68/M ROOM: RE10/20/[address]: Kiara Grant : 1950 BED: DIS: 10/20/2019 SPEC #: [id number] RECD: 10/20/19 12:41 STATUS: BUSHRA REQ #: [id number] KATERYNA: 10/20/19 07:[address]: Kiara Grant DEPT: Surgical Specimen RECD BY: Rosario Polanco ENTERED: 10/20/19 12:44 SP TYPE: Bowel OTHR DR: Lane Womack Tissues: 1 - BIOPSY BOWEL 2 - BIOPSY BOWEL 3 - BIOPSY BOWEL Procedures: GROSS AND MICRO LEVEL 4 Comments: [id number]
--- NOTE | 2019-10-20 08:18 | W.COLOREPORT ---
Date of service: 10/20/19 Time of Service: 08:18 Colonoscopy Report Date of procedure: 10/20/19 Pre-op diagnosis general: A. polyps Post-op diagnosis procedure note: same Procedure: adn polypectomy. x1 hot snare. x3 cold forceps Surgeon: Kiara Grant Anesthesia proc note operative: MAC Estimated blood loss (mL): 1 Pathology: other Complications: None Disposition: same day Prep: Miralax/Dulcolax Retraction Time: 12 mins Procedure Description: After informed consent was obtained the patient was taken to the procedure room and placed in a left decubitous position. Monitors were applied and a time out was done. The patients name, date of , procedure, allergies to medications and metal in their body was reviewed. The patient was then sedated. Once sedated and comfortable a rectal exam was done. External exam was normal. Internal exam revealed a normal sphincter tone and no palpable masses. The scope was then introduced and retrofelexed. [] internal hemorrhoids were identified. The scope was then advanced to the cecum w/out difficulty. The TI and appendiceal orifice were identified. The prep was good. The scope was then slowly retracted over 12 minutes back into the rectum. Polyps were removed at: X1 in the rectum with cold forcep. X1 at 8 cm in the right colon with cold forceps to at 70 cm x 1 with a cold forceps x1 with a hot snare. There are no AVMs or diverticuli.. The mucosa is pink and healthy.. The scope was removed and the patient was woken up and taken back to Same day surgery in stable condition. The patient tolerated the procedure well and there were no immediate complications. Follow up: The patient should follow up in 5 years unless they develop changes in bowel habits or other new gastrointestinal complaints.
--- NOTE | 2019-10-20 08:22 | W.PM.DSUDISC ---
Discharge Plan Disposition Patient Disposition: HOME Condition: Good Discharge Details Reason For Visit: colon scope Attending Provider: Kiara Grant Primary Care Provider: Lane Womack Home Meds and New Rx's Prescriptions: Discontinued polyethylene glycol 3350 17 gram/dose powder 238 g PO ONCE Qty: 238 RF: 0 bisacodyl [Dulcolax (bisacodyl)] 5 mg tablet,delayed release (DR/EC) 5 mg PO ONCE Qty: 4 RF: 0 polyethylene glycol 3350 [Miralax] 17 gram/dose powder 17 gm PO DAILY RF: 0 No Action tadalafil [Cialis] 5 mg tablet 5 mg PO DAILY RF: 0 losartan 50 mg tablet 50 mg PO DAILY RF: 0 aspirin [Aspirin Low-Strength] 81 MG tablet,chewable 81 mg PO DAILY RF: 0 hydrochlorothiazide 12.5 mg capsule 12.5 mg PO DAILY RF: 0 clotrimazole [Antifungal (clotrimazole)] 1 % cream 1 applic TP BID RF: 0 rosuvastatin 5 mg tablet 5 mg PO DAILY RF: 0 loperamide [Imodium A-D] 2 mg Capsule 2 mg PO Q6H PRNRF: 0 Discharge Instructions Additional Instructions: Findings:x4 polyps removed. Will send a letter w results in 2-3 weeks -Trying to avoid NSAIDs for 72 hours. Follow up:Repeat in 5 yrs time if still healthy for anesthesia. Please call if you develop: fevers >101.5 Nausea or Vomiting Abdominal pain that is not transient DAY SURGERY UNIT POST COLONOSCOPY INSTRUCTIONS 1. Because there will be medication in your system for the next 24 hours, you may feel a little sleepy. Your coordination will be affected. Therefore: a. Do not drive or operate dangerous equipment for 24 hours. b. Do not drink alcohol beverages for 24 hours (not even beer). c. Plan to go home and rest for the day. 2. Generally there are no restrictions on your activity after a day or so has gone by, but you may feel a bit fatigued for a few days. 3 After you arrive home you may have a light meal and return to a normal diet as you can tolerate it without feeling sick to your stomach. 4. After surgery, you may feel pain or discomfort. This should be only transient, but if it persists please contact your doctor. 5. If there are any questions regarding the findings of your procedure, please feel free to contact your doctor. 6. If you are unable to contact your doctor with a problem, contact the hospital at [phone]. 7. Continue all your regular medications unless directed otherwise. I understand the above instructions and have no questions. Signature of Patient or Responsible Adult Escort Date/Time Name of Responsible Adult Escort Signature of Nurse Date/Time Activity:: No lifting over 20 pounds or strenuous activity x24 hours Diet:: Small light meals x24 hours Discharge Orders Discharge Orders: Discharge Order (Routine); Ordered 10/20/19 Ordered By: Kiara Grant
[2019-10-20 08:44] VITALS: BP 146/79; PULSE 62; RESP 16; TEMP 36.4; O2SAT 98
== END 2019-10-20 09:20 | disposition home or self-care (01) ==
PROVIDERS: PCP Family Medicine; Visit Provider Surgery
PROC: 0DJD8ZZ Inspection of Lower Intestinal Tract, Via Natural or Artificial Opening Endoscopic (ICD-10-PCS; CPT 45378; principal; 2019-10-20 07:30)
DX: Z12.11 Encounter for screening for malignant neoplasm of colon (principal); Z86.010 Personal history of colon polyps; K62.1 Rectal polyp; D12.6 Benign neoplasm of colon, unspecified
CPT/HCPCS: 45380; 45385; 88305

== ENCOUNTER → 2020-03-07 13:34 | Outpatient (BNVA) | payer MEDICARE, OTHER, SELFPAY | PROVIDERS: PCP Family Medicine; Referring Provider Family Medicine; Visit Provider Physician Assistant | DX: I49.5 Sick sinus syndrome (principal); Z45.018 Encounter for adjustment and management of other part of cardiac pacemaker | CPT/HCPCS: 93280; 99212 ==

== ENCOUNTER 2020-03-13 20:56 | Outpatient (REF) | payer MEDICARE, SELFPAY ==
[2020-03-13 17:53] LABS: HCT 41.3 % (40.0-50.0); HGB 14.1 g/dL (13.5-17.5); MCHC 34.1 % (32.0-36.0); MCV 90.8 fL (80-95); MPV 10.4 fL (8.0-11.0); Platelet Count 278 10^3/uL (130-400); RBC 4.55 10^6/uL (4.36-5.78); RDW 12.5 % (11.8-14.1); RDW-SD 41.2 fL; WBC 10.77 10^3/uL (4.4-10.8)
[2020-03-13 18:03] LABS: ALT 51 U/L (16-63); AST 25 U/L (15-37); Albumin 4.1 g/dL (3.4-5.0); Alkaline Phosphatase 67 U/L (46-116); Anion Gap 12.4 mmol/L (3-11); BUN 17 mg/dL (7-18); Bilirubin, Total 0.3 mg/dL (0.2-1.0); CO2 24.6 mmol/L (21.0-32.0); CREATININE 0.93 mg/dL (0.70-1.30); Calcium 9.8 mg/dL (8.5-10.1); Chloride 104 mmol/L (98-107); Glucose 106 mg/dL (74-106); Potassium 3.8 mmol/L (3.5-5.1); Sodium 141 mmol/L (136-145); Total Protein 7.4 g/dL (6.4-8.2)
[2020-03-13 18:19] LABS: Hemoglobin A1C 5.7 % (<5.7)
== END 2020-03-13 21:16 ==
LOC: NCHCN 20:56
PROVIDERS: PCP Family Medicine; Visit Provider Family Medicine
DX: I25.10 Atherosclerotic heart disease of native coronary artery without angina pectoris (principal); R73.03 Prediabetes; R42 Dizziness and giddiness; F10.10 Alcohol abuse, uncomplicated
CPT/HCPCS: 80053; 85027; 83036; 83735

== ENCOUNTER → 2020-05-03 09:59 | Outpatient (BNVA) | payer MEDICARE, OTHER, SELFPAY | PROVIDERS: PCP Family Medicine; Referring Provider Family Medicine; Visit Provider Urology | DX: N40.1 Benign prostatic hyperplasia with lower urinary tract symptoms (principal); N13.8 Other obstructive and reflux uropathy; Z95.0 Presence of cardiac pacemaker | CPT/HCPCS: 99214; 99215 ==

== ENCOUNTER → 2020-05-04 08:57 | Outpatient (BNVA) | payer MEDICARE, OTHER, SELFPAY | PROVIDERS: PCP Family Medicine; Referring Provider Family Medicine; Visit Provider Internal Medicine Cardiovascular Disease | DX: J44.9 Chronic obstructive pulmonary disease, unspecified (principal); I10 Essential (primary) hypertension; Z95.0 Presence of cardiac pacemaker | CPT/HCPCS: 99214; 99213 ==

== ENCOUNTER 2020-10-08 17:59 | Outpatient (REF) | payer MEDICARE, OTHER, SELFPAY ==
[2020-10-08 16:29] LABS: Anion Gap 10.2 mmol/L (3-11); BUN 19 mg/dL (7-18); CO2 26.8 mmol/L (21.0-32.0); Calcium 9.7 mg/dL (8.5-10.1); Chloride 106 mmol/L (98-107); Glucose 150 mg/dL (74-106); Potassium 3.8 mmol/L (3.5-5.1); Sodium 143 mmol/L (136-145)
== END 2020-10-08 18:00 | disposition home or self-care (01) ==
LOC: NCHCN 17:59
PROVIDERS: PCP Family Medicine; Visit Provider Family Medicine
DX: D35.00 Benign neoplasm of unspecified adrenal gland (principal); I71.4 Abdominal aortic aneurysm, without rupture
CPT/HCPCS: 80048

== ENCOUNTER → 2020-10-10 09:01 | Outpatient (BNVA) | payer MEDICARE, OTHER, SELFPAY | PROVIDERS: PCP Family Medicine; Referring Provider Family Medicine; Visit Provider Physician Assistant | DX: I49.5 Sick sinus syndrome (principal); Z45.018 Encounter for adjustment and management of other part of cardiac pacemaker | CPT/HCPCS: 93280; 99211 ==

== ENCOUNTER → 2021-04-10 08:31 | Outpatient (BNVA) | payer MEDICARE, OTHER, SELFPAY | PROVIDERS: PCP Family Medicine; Referring Provider Family Medicine; Visit Provider Physician Assistant | DX: I49.5 Sick sinus syndrome (principal); Z45.018 Encounter for adjustment and management of other part of cardiac pacemaker | CPT/HCPCS: 93280; 99211 ==

== ENCOUNTER → 2021-05-02 09:21 | Outpatient (BNVA) | payer MEDICARE, OTHER, SELFPAY | PROVIDERS: PCP Family Medicine; Referring Provider Family Medicine; Visit Provider Urology | DX: N40.1 Benign prostatic hyperplasia with lower urinary tract symptoms (principal); N13.8 Other obstructive and reflux uropathy | CPT/HCPCS: 81003; 99214 ==

== ENCOUNTER → 2021-05-07 09:34 | Outpatient (BNVA) | payer MEDICARE, OTHER, SELFPAY | PROVIDERS: PCP Family Medicine; Referring Provider Family Medicine; Visit Provider Internal Medicine Cardiovascular Disease | DX: I10 Essential (primary) hypertension (principal); Z95.0 Presence of cardiac pacemaker; I25.10 Atherosclerotic heart disease of native coronary artery without angina pectoris | CPT/HCPCS: 99213 ==

== ENCOUNTER 2021-06-04 00:48 | Outpatient (CLI) | payer MEDICARE, OTHER, SELFPAY ==
[2021-06-04 07:56] LABS: CREATININE 0.9 mg/dL (0.70-1.30)
--- NOTE | 2021-06-04 08:30 | DI.CT_ITS ---
Exam(s) CT ABDOMEN WO/W EXAM: CT ABDOMEN WO/W CLINICAL HISTORY: F/U ADRENAL ADENOMA, D35.00; AAA, I71.4 TECHNIQUE: Imaging Protocol: Axial computed tomography images with coronal and sagittal reformatted images were created and reviewed. Pre contrast, postcontrast and delayed images were performed from the lung bases through the upper pelvis. CONTRAST MATERIAL: Intravenous: Omnipaque 350 Contrast volume:100 ml Contrast route:IV - Oral: no FINDINGS: ABDOMEN: Lung Bases: Lung normal where visualized. Heart size normal where visualized. Pacemaker leads note d. Liver: Normal density. No measurable mass. Gallbladder and biliary tract: No radiodense calculus or dilation. Pancreas: Normal density, no abnormal calcifications or inflammatory process. Spleen: Normal. Kidneys: Normal size, contour and axis. No radiodense stones or obstructive uropathy. Stable left re nal cysts. No masses seen. Adrenal glands: Right: Stable size 2.4 centimeter right adrenal nodule, 2.4 cm maximal dimension. It is water density on noncontrast images, consistent with an adenoma. Left: No masses seen. Abdominal Aorta: Aortoiliac stents extending through saccular distal aortic aneurysm. The stents are patent where visualized. Lymph nodes: Within normal limits. Bowel: Normal quantity of stool. Appendix normal. No wall thickening or evidence of obstruction. S tomach unremarkable as visualized. Bones: Unremarkable for age. IMPRESSION: 1. Stable size and appearance of right adrenal nodule, consistent with an adenoma. 2. Stable appearance of left renal cysts. RADIATION DOSE DELIVERED: 1,394.71mGy.cm Total DLP DATA REPOSITORY: All CT scans at this facility are submitted to the National Radiology Data Registry (NRDR) Dose Index Registry (DIR) with the [employer] ([employer]). RADIATION OPTIMIZATION: All CT scans at this facility use at least one of these dose optimization te chniques: automated exposure control; mA and/or kV adjustment per patient size (includes targeted exa ms where dose is matched to clinical indication); or iterative reconstruction.
[2021-06-04] MEDS: Omnipaque 350 MG/ML 100 ML BTL IJ (08:56)
== END 2021-06-04 01:08 ==
PROVIDERS: PCP Family Medicine; Visit Provider Family Medicine
DX: Z01.812 Encounter for preprocedural laboratory examination (principal); I71.4 Abdominal aortic aneurysm, without rupture; D35.01 Benign neoplasm of right adrenal gland; Z95.0 Presence of cardiac pacemaker; N28.1 Cyst of kidney, acquired
CPT/HCPCS: 74170; 82565; J3490

== ENCOUNTER → 2021-10-09 08:53 | Outpatient (BNVA) | payer MEDICARE, OTHER, SELFPAY | PROVIDERS: PCP Family Medicine; Visit Provider Physician Assistant | DX: Z95.0 Presence of cardiac pacemaker (principal) | CPT/HCPCS: 93280 ==

== ENCOUNTER 2021-10-25 16:52 | Outpatient (REF) | payer MEDICARE, OTHER, SELFPAY ==
[2021-10-25 15:53] LABS: ALT 43 U/L (16-63); AST 23 U/L (15-37); Alkaline Phosphatase 59 U/L (46-116); Anion Gap 9.5 mmol/L (3-11); BUN 18 mg/dL (7-18); Bilirubin, Total 0.4 mg/dL (0.2-1.0); CO2 28.5 mmol/L (21.0-32.0); Calcium 9.1 mg/dL (8.5-10.1); Chloride 101 mmol/L (98-107); Glucose 146 mg/dL (74-106); Potassium 3.4 mmol/L (3.5-5.1); Sodium 139 mmol/L (136-145); Total Protein 7.1 g/dL (6.4-8.2)
[2021-10-25 16:17] LABS: Calculated LDL 74 mg/dL (<100); Cholesterol 159 mg/dL (<200); HDL Cholesterol 47 mg/dL (40-60); Triglyceride 193 mg/dL (<150)
== END 2021-10-25 16:53 | disposition home or self-care (01) ==
LOC: NCHCN 16:52
PROVIDERS: PCP Family Medicine; Visit Provider Family Medicine
DX: I10 Essential (primary) hypertension (principal); I25.10 Atherosclerotic heart disease of native coronary artery without angina pectoris
CPT/HCPCS: 80053; 80061

== ENCOUNTER → 2021-10-28 15:55 | Outpatient (CLI) | payer MEDICARE, OTHER, SELFPAY ==
--- NOTE | 2021-10-28 | DI.CT_ITS ---
Exam(s) CT HEAD WO EXAM: CT HEAD WO CLINICAL HISTORY: CONTUSION, S00.93xA, RETIREMENT ANTIPLATELET THERPAY, Z79.02. TECHNIQUE: Imaging Protocol: Axial computed tomography images with coronal and sagittal reformatted images were created and reviewed COMPARISON: No exams were available for comparison FINDINGS: There are no skull fractures nor fluid in the visualized paranasal sinuses. There is no evidence of intracranial hemorrhage, mass effect, or shift of midline structures. There are no extra-axial fluid collections. The ventricles are not enlarged or shifted and there is no blo od within the ventricular system nor within the basal cisterns. Calcification is noted within the vertebral arteries at the skull base. There is subtle asymmetric hypodensity in the right side of the joseph. Possibly significant. Should be further studied with MRI. IMPRESSION: Subtle hypodensity in the right side of the joseph, possibly significant. Recommend follow-up MRI. RADIATION DOSE DELIVERED: 781.13mGy.cm Total DLP DATA REPOSITORY: All CT scans at this facility are submitted to the National Radiology Data Registry (NRDR) Dose Index Registry (DIR) with the [employer] (ACR). RADIATION OPTIMIZATION: All CT scans at this facility use at least one of these dose optimization te chniques: automated exposure control; mA and/or kV adjustment per patient size (includes targeted exa ms where dose is matched to clinical indication); or iterative reconstruction.
== END ==
PROVIDERS: PCP Family Medicine; Visit Provider Nurse Practitioner Family
DX: S00.93XA Contusion of unspecified part of head, initial encounter (principal); Z79.02 Long term (current) use of antithrombotics/antiplatelets; R93.0 Abnormal findings on diagnostic imaging of skull and head, not elsewhere classified; X58.XXXA Exposure to other specified factors, initial encounter
CPT/HCPCS: 70450

== ENCOUNTER → 2021-11-12 02:28 | Outpatient (CLI) | payer MEDICARE, OTHER, SELFPAY ==
--- NOTE | 2021-11-12 | DI.CT_ITS ---
Exam(s) CT HEAD WO/W EXAM: CT HEAD WO/W CLINICAL HISTORY: ABNL CT SCAN 10/28/21 R94.02 TECHNIQUE: COMPARISON: CT CT HEAD WO from 10/28/2021 FINDINGS: CT examination was performed prior to and following intravenous infusion of 100 cc of Omnipaque 350. Recent CT examination of October 28 showed question of area of hypo attenuation in the joseph on the r ight. This is not appreciated on today's examination. There is mild generalized cerebral atrophy. There is no evidence of an intracranial mass lesion or e nhancing lesion. The orbital and temporal bone structures appear intact. There is mucoperiosteal th ickening of left maxillary antrum, as well as frontal and ethmoid sinuses consistent with mild chroni c sinusitis. IMPRESSION: Mild cerebral atrophy. No pontine abnormality identified on noncontrast or contrast-enhanced scans. If there is a clinical suspicion of pontine abnormality, additional evaluation with MRI would be more sensitive in detecting small pontine lesions. RADIATION DOSE DELIVERED: 1,549.5mGy.cm Total DLP !Error CTDIvol DATA REPOSITORY: All CT scans at this facility are submitted to the National Radiology Data Registry (NRDR) Dose Index Registry (DIR) with the [employer] (ACR). RADIATION OPTIMIZATION: All CT scans at this facility use at least one of these dose optimization te chniques: automated exposure control; mA and/or kV adjustment per patient size (includes targeted exa ms where dose is matched to clinical indication); or iterative reconstruction.
[2021-11-12] MEDS: Omnipaque 350 MG/ML 100 ML BTL IJ (09:05)
[2021-11-12] MEDS: Normal Saline Flush 10 ML SYR IVP (09:16)
== END ==
PROVIDERS: PCP Family Medicine; Visit Provider Family Medicine
DX: G31.9 Degenerative disease of nervous system, unspecified (principal)
CPT/HCPCS: 70470; J3490

== ENCOUNTER → 2022-04-09 08:24 | Outpatient (BNVA) | payer MEDICARE, OTHER, SELFPAY | PROVIDERS: PCP Family Medicine; Visit Provider Physician Assistant | DX: Z95.0 Presence of cardiac pacemaker (principal); I49.5 Sick sinus syndrome | CPT/HCPCS: 93280 ==

== ENCOUNTER → 2022-05-02 07:52 | Outpatient (BNVA) | payer MEDICARE, OTHER, SELFPAY | PROVIDERS: PCP Family Medicine; Visit Provider Urology | DX: N40.1 Benign prostatic hyperplasia with lower urinary tract symptoms (principal); N13.8 Other obstructive and reflux uropathy; N39.41 Urge incontinence | CPT/HCPCS: 99213 ==

== ENCOUNTER 2022-05-06 08:42 | Outpatient (CLI) | payer MEDICARE, OTHER, SELFPAY ==
--- NOTE | 2022-05-06 08:30 | RT.EKG_ITS ---
APPROVED REPORT Exam: Resting ECG Reason for Exam: CAD Patient Location: O HR:69 bpm ECG Measurements Heart Rate 69 AXIS MS 105 P -50 QRSd 163 QRS -50 QT 444 T 92 QTc 476 Conclusion A-V dual-paced rhythm with some inhibition...atrial and/or vent inhibition No further analysis attempted due to paced rhythm Baseline wander in lead(s) I,II,aVR,V1,V2,V3,V4,V5
== END 2022-05-06 08:43 | disposition home or self-care (01) ==
LOC: DI.CARD 08:44
PROVIDERS: PCP Family Medicine; Visit Provider Internal Medicine Cardiovascular Disease
DX: I25.10 Atherosclerotic heart disease of native coronary artery without angina pectoris (principal); I49.5 Sick sinus syndrome; R94.31 Abnormal electrocardiogram [ECG] [EKG]
CPT/HCPCS: 93010

== ENCOUNTER → 2022-05-06 09:43 | Outpatient (BNVA) | payer MEDICARE, OTHER, SELFPAY | PROVIDERS: PCP Family Medicine; Visit Provider Internal Medicine Cardiovascular Disease | DX: I25.10 Atherosclerotic heart disease of native coronary artery without angina pectoris (principal); I49.5 Sick sinus syndrome; Z95.0 Presence of cardiac pacemaker; I10 Essential (primary) hypertension | CPT/HCPCS: 93005; 99214 ==

== ENCOUNTER → 2022-10-08 08:26 | Outpatient (BNVA) | payer MEDICARE, OTHER, SELFPAY | PROVIDERS: PCP Family Medicine; Referring Provider Family Medicine; Visit Provider Physician Assistant | DX: Z45.010 Encounter for checking and testing of cardiac pacemaker pulse generator [battery] (principal); I10 Essential (primary) hypertension; J44.9 Chronic obstructive pulmonary disease, unspecified; I49.5 Sick sinus syndrome | CPT/HCPCS: 93280; 99212 ==

== ENCOUNTER → 2023-02-19 09:48 | Outpatient (BNVA) | payer MEDICARE, OTHER, SELFPAY | PROVIDERS: PCP Family Medicine; Referring Provider Family Medicine; Visit Provider Internal Medicine Cardiovascular Disease | DX: I25.10 Atherosclerotic heart disease of native coronary artery without angina pectoris (principal); Z95.0 Presence of cardiac pacemaker; I10 Essential (primary) hypertension | CPT/HCPCS: 99213 ==

== ENCOUNTER → 2023-03-12 08:25 | Outpatient (BNVA) | payer MEDICARE, OTHER, SELFPAY | PROVIDERS: PCP Family Medicine; Referring Provider Family Medicine; Visit Provider Podiatrist | DX: B35.1 Tinea unguium (principal); M79.675 Pain in left toe(s); M79.674 Pain in right toe(s); L84 Corns and callosities; L60.3 Nail dystrophy; R09.89 Other specified symptoms and signs involving the circulatory and respiratory systems; L65.9 Nonscarring hair loss, unspecified; R60.0 Localized edema; M20.11 Hallux valgus (acquired), right foot; M20.12 Hallux valgus (acquired), left foot; R20.2 Paresthesia of skin; G62.89 Other specified polyneuropathies | CPT/HCPCS: 11056; 11721 ==

== ENCOUNTER → 2023-04-08 08:31 | Outpatient (BNVA) | payer MEDICARE, OTHER, SELFPAY | PROVIDERS: PCP Family Medicine; Referring Provider Family Medicine; Visit Provider Physician Assistant | DX: Z95.0 Presence of cardiac pacemaker (principal); I49.5 Sick sinus syndrome | CPT/HCPCS: 93280 ==

== ENCOUNTER → 2023-04-23 07:54 | Outpatient (BNVA) | payer MEDICARE, OTHER, SELFPAY | PROVIDERS: PCP Family Medicine; Referring Provider Family Medicine; Visit Provider Physical Therapy Assistant | DX: Z12.11 Encounter for screening for malignant neoplasm of colon (principal); Z86.010 Personal history of colon polyps ==

== ENCOUNTER → 2023-05-01 07:49 | Outpatient (BNVA) | payer MEDICARE, OTHER, SELFPAY | PROVIDERS: PCP Family Medicine; Referring Provider Family Medicine; Visit Provider Urology | DX: N40.1 Benign prostatic hyperplasia with lower urinary tract symptoms (principal); N13.8 Other obstructive and reflux uropathy | CPT/HCPCS: 99213 ==

== ENCOUNTER 2023-05-15 06:04 | Day surgery (SDC) | payer MEDICARE, OTHER, SELFPAY ==
--- NOTE | 2023-05-14 16:35 | W.PM.OP ---
Operative Note Operative Note PRE-OP DIAGNOSIS: T. adenoma Refer to Anesthesia Record
--- NOTE | 2023-05-14 16:36 | W.COLOREPORT ---
Date of service: 05/15/23 Time of Service: 08:22 Colonoscopy Report Date of procedure: 05/15/23 Pre-op diagnosis general: T. adenoma x3 70-80cm 2019 Surgeon: Kiara Grant Anesthesia Type: General:No Airway Complications: None Disposition: same day Prep: Miralax/Dulcolax Findings: 20 Procedure Description: After informed consent was obtained the patient was taken to the procedure room and placed in a left decubitous position. Monitors were applied and a time out was done. The patients name, date of , procedure, allergies to medications and metal in their body was reviewed. The patient was then sedated. Once sedated and comfortable a rectal exam was done. External exam was normal. Internal exam revealed a normal sphincter tone and no palpable masses. The prostate no palpable masses The scope was then introduced and retrofelexed. Grade 1 internal hemorrhoids and hemorrhoidal tags were identified. The scope was then advanced to the cecum without difficulty. The TI and appendiceal orifice were identified. The scope was then slowly retracted over 20 minutes back into the rectum. He has a flat 0.5 cm polyp at 80 cm that is removed with a cold biting forcep. He has a 0.75 cm pedunculated polyp at 80 cm that is removed with a cold snare. He has a 0.75 cm flat polyp at 70 cm that is removed with a cold forcep. He has a the scope was removed and the patient was woken up and taken back to Same day surgery in stable condition. The patient tolerated the procedure well and there were no immediate complications. Follow up: The patient should follow up in 5 years unless they develop changes in bowel habits or other new gastrointestinal complaints. [place] Bowel Prep [place] Bowel Prep Right Colon: 3 Left Colon: 3 Transverse Colon: 3 Total Score: 9
--- NOTE | 2023-05-14 16:37 | PDOC.DSDIS_ITS ---
Date of service: 05/15/23 Time of Service: 08:20 Discharge Plan Disposition Patient Disposition: Home Condition: Good Discharge Details Reason For Visit: colon scope Attending Provider: Kiara Grant Primary Care Provider: Lane Womack Home Meds and New Rx's Prescriptions: Continued triamcinolone acetonide 0.1 % cream 1 applic topical DAILY tadalafil [Cialis] 5 mg tablet 5 mg PO DAILY Qty: 90 4RF aspirin [Aspirin Low-Strength] 81 MG tablet,chewable 81 mg PO DAILY rosuvastatin 5 mg tablet 10 mg PO DAILY Rx Instructions: Increased by PCP from 5mg to 10mg 01/2022. polyethylene glycol 3350 [Miralax] 17 gram/dose powder 17 g PO DAILY PRN clotrimazole [Antifungal (clotrimazole)] 1 % cream 1 applic topical BID losartan 50 mg tablet 50 mg PO DAILY Patient Comments: 04/22/23 call from PCP clarifying this is what pt is taking RH hydrochlorothiazide 12.5 mg tablet 12.5 mg PO DAILY Patient Comments: 04/22/23 call from PCP clarifying this is what pt is taking RH Discontinued bisacodyl [Dulcolax (bisacodyl)] 5 mg tablet,delayed release (DR/EC) 5 mg PO ONCE Qty: 4 0RF Rx Instructions: Take per colonoscopy instructions provided by ordering providers office polyethylene glycol 3350 17 gram/dose powder 17 g PO ONCE Qty: 238 0RF Rx Instructions: Take per colonoscopy instructions provided by ordering providers office Discharge Instructions Additional Instructions: DSU Colonoscopy Post- Op Instructions Instructions for Everyone who is given Anesthesia: For your safety, please do the following for the next twenty-four (24) hours: *Do Not operate a motor vehicle (car, truck, motorcycle, etc.) *Do Not drink alcoholic beverages or use any recreational drugs for the first 24 hours or while taking pain medications. The medications in your body may have a reaction that can be dangerous. *Do Not make any important decisions or sign any important papers. Findings: Multiple polyps - Thursday Follow up: my office will send you a letter in 2 to 3 weeks time with the pathology results and when we want you to repeat the colonoscopy. 1. No lifting over 20 pounds or strenuous activity for the first 24 hours after your procedure. After 24 hours there are no restrictions on your activity but you may feel fatigued for a few days. 2. After you arrive home you may have a light meal and return to your normal diet as you can tolerate it without feeling sick to your stomach. 3. You may have a bloated, gaseous feeling in your belly (abdomen) after a colonoscopy. Passing gas and belching will help. Walking or lying down on your left side with your knees flexed may relieve the discomfort. Call the office at [phone] (Office) or [phone] (Hospital) right away if you notice any of the following: a.Vomiting of blood or ?coffee ground stools?. b.Rectal bleeding 1Tbsp, blood clots or continuous bleeding. c.Severe belly (abdominal) pain. d.A hard distended belly (abdomen) and an inability to pass gas. 4. Please don?t expect to have a normal BM (bowel movement) for 2-3 days after your procedure. 5. If there are questions regarding the findings of your procedure, please contact your doctor 6. If you are unable to contact your doctor with a problem, contact the hospital at [phone]. 7. Continue all your regular medications unless directed otherwise. I understand the above instructions and have no questions. Signature of Patient or Adult Escort Name of Responsible Adult Escort Signature of Nurse Date/Time Activity:: see above Diet:: see above Discharge Orders Discharge Orders: Discharge Order (Routine); Ordered 05/15/23 Ordered By: Kiara Grant DS: Diagnosis Discharge Diagnosis (1) History of alcohol dependence: Status: Acute (2) HTN (hypertension): Status: Chronic (3) Coronary artery disease: Status: Chronic (4) Sick sinus syndrome: Status: Acute (5) Presence of cardiac pacemaker: Status: Acute (6) Hyperlipidemia: Status: Acute (7) GERD (gastroesophageal reflux disease): Status: Chronic (8) Tubular adenoma of colon: Status: Acute Asessment and Plan: The patient is seen and examined after their colonoscopy.? The patient has been able to pass gas.? They are not having abdominal pain.? They have been able to tolerate liquids and a snack.? They do not have any nausea or vomiting.? They are not having any chest pain or shortness of breath.??? They are not having any rectal bleeding. Their vital signs have been stable-see nursing notes. We discussed findings during their colonoscopy, and any biopsies that were done/polyps that were removed. The patient will be sent a letter with any biopsy results, and when to repeat the colonoscopy.-see discharge instructions. Patient was given explicit instructions to follow-up regarding colonoscopy-refer to discharge instructions.? We reviewed resumption of medications. Patient verbalized understanding and discharged in stable and satisfactory condition- See nursing notes. (9) Urgency incontinence: Status: Acute (10) BPH w urinary obs/LUTS: Status: Acute (11) Neuropathy: Status: Acute (12) Polyneuropathy, unspecified: Status: Acute (13) COPD, mild: Status: Acute (14) Osteoarthritis: (15) Abdominal aortic aneurysm: (16) Marijuana use: (17) Constipation:
[2023-05-15 06:29] VITALS: BP 155/93; PULSE 76; RESP 16; TEMP 36.5; O2SAT 99
[2023-05-15] MEDS: Lactated Ringers 1,000 ML 80 ML IV (06:53)
--- NOTE | 2023-05-15 07:09 | ANES.PREOP_ITS ---
General Info Date of Service Date Performed: 05/15/23 Height: 5 ft 11 in Weight: 98 kg Body Mass Index (BMI): 30.1 Surgical Procedure: Operation Date: 05/15/23 07:35 Proposed Procedure Side Surgeon terrell Grant, Meds Allergies and Home Medications Allergies Allergy/AdvReac Type Severity Reaction Status Date / Time atorvastatin Allergy Intermediate it was Verified 05/15/23 06:44 making me fall down Penicillins AdvReac Mild hands red Verified 05/15/23 06:44 and itchy tetracycline AdvReac Mild red and Verified 05/15/23 06:44 itchy Home Medication Medication Instructions Recorded aspirin 81 mg chewable tablet 81 mg PO DAILY 07/02/15 (Aspirin Low-Strength) rosuvastatin 5 mg tablet 10 mg PO DAILY 02/20/22 triamcinolone acetonide 0.1 % 1 applic topical DAILY 05/20/22 topical cream clotrimazole 1 % topical cream 1 applic topical BID 04/15/23 (Antifungal (clotrimazole)) polyethylene glycol 3350 17 17 g PO DAILY PRN 04/15/23 gram/dose oral powder (Miralax) hydrochlorothiazide 12.5 mg tablet 12.5 mg PO DAILY 04/22/23 losartan 50 mg tablet 50 mg PO DAILY 04/22/23 tadalafil 5 mg tablet (Cialis) 5 mg PO DAILY urination #90 05/01/23 tab-caps Current Visit Medications: Current Medications Generic Name Dose Route Start Last Admin Trade Name Freq PRN Reason Stop Dose Admin Ringer's Solution 1,000 mls @ 80 mls/hr 05/15/23 06:00 05/15/23 06:53 IV 06/13/23 23:59 80 mls/hr INFUSION MICHELLE Administration IV Miscellaneous Supplies 1 each 05/15/23 06:00 Iv Access IV 06/13/23 23:59 DIRECTED MICHELLE Sodium Chloride 0 ml 05/15/23 06:00 Normal Saline Flush 10 Ml Syr IV 06/13/23 23:59 PRN PRN Sodium Chloride 0 ml 05/15/23 06:00 Normal Saline 10 Ml Vial IJ 06/13/23 23:59 DIRECTED PRN Sterile Water 0 ml 05/15/23 06:00 Water,Injection,Sterile 10 Ml Vial IJ 06/13/23 23:59 DIRECTED PRN PFSH Active Problems Active Problems: Problem Status Onset Code Onychomycosis B35.1 Toe pain, left M79.675 Toe pain, right M79.674 Polyneuropathy, unspecified G62.9 Hyperlipidemia E78.5 Neuropathy G62.9 Pain, foot M79.673 Corns and callosities L84 Nail dystrophy L60.3 Coronary artery disease I25.10 Hyperplastic colon polyp K63.5 Tubular adenoma D36.9 Tubular adenoma of colon D12.6 Rectal hemorrhage K62.5 COPD, mild J44.9 GERD (gastroesophageal reflux disease) K21.9 History of alcohol dependence F10.21 History of adenomatous polyp of colon Z86.010 Presence of cardiac pacemaker Z95.0 Sick sinus syndrome I49.5 HTN (hypertension) I10 Urgency incontinence 02/29/16 N39.41 Nocturia more than twice per night 02/29/16 R35.1 Mallet finger of left finger(s) 02/04/16 M20.012 BPH w urinary obs/LUTS 05/19/16 N40.1, N13.8 Medical History Medical History Abdominal aortic aneurysm Marijuana use Anal pain Adrenal adenoma Osteoarthritis right knee Constipation Sleep apnea Bright red rectal bleeding Surgical History Surgical History (Updated 05/14/23 @ 08:41 by Emiliano Galan) History of AAA (abdominal aortic aneurysm) repair open-2016 History of permanent cardiac pacemaker placement Tobacco Smoking/Tobacco Use Status: Former Tobacco Use Alcohol Alcohol Intake: current Alcohol intake frequency: 3 or more drinks per day Alcohol type: beer Substance Use Substance use: Daily Substance use type: former substance user and marijuana Details: 05/15/23 - smoked marijuana Vital Signs and Lab Results Vital Signs Most Recent Vital Signs in EMR: Most Recent Vital Signs Temp Pulse Resp BP Pulse Ox 36.5 C 76 16 155/93 H 99 05/15/23 06:29 05/15/23 06:29 05/15/23 06:29 05/15/23 06:29 05/15/23 06:29 Lab Results Blood Type / Crossmatch: No Data to Display Complete Blood Count: No Data to Display Complete Metabolic Panel: No Data to Display Liver Function Panel: No Data to Display Coagulation Panel: No Data to Display Cardiac Panel: No Data to Display Arterial Blood Gas: No Data to Display Venous Blood Gas: No Data to Display Pancreas Panel: No Data to Display Thyroid Panel: No Data to Display Infectious Disease: No Data to Display Blood Cultures: No Data to Display Toxicology Panel: No Data to Display Anesthesia Assessment and Plan Anesthesia History Personal History: No History of Anesthesia Complications Family History: No Family History of Anesthesia Complications Exercise Tolerance Exercise Tolerance: Metabolic Equivalents>4 Pertinent Negatives Pertinent Negatives: No Symptoms of GERD Cardiac & Pulmonary Exam Cardiac Exam: Normal S1/S2 Heart Sounds Pulmonary Exam: Clear Bilateral Breath Sounds Implantable Cardiac Device Does patient have a Pacemaker or an ICD?: Yes Device Machine Cloth Examiner:: Verafin Reason for Placement:: [facility] Date of Last Device Interrogation:: 05/11/23 Airway Exam Known Difficult Airway: No Mallampati Class: 2 Mouth Opening: Normal (> 3cm) Thyromental Distance: Greater than 3 cm Neck Range of Motion: Full ROM Neck Circumference: Normal Teeth Condition: Normal Dentition ASA Classification ASA Score: ASA 2 Emergency Case?: No NPO Status NPO Status: NPO Clears >2 hours, Solids >8 hours Anesthesia Plan Resuscitation Status: Full Code Anesthesia Technique: General Anesthesia Airway Planned: Natural Airway Monitors Used: Standard Monitors
[2023-05-15 07:10] VITALS: BMI 30.1
--- NOTE | 2023-05-15 07:49 | BOWEL_PTH ---
PATIENT: Lane Poe LOC: [facility] U#:[id number] AGE/SX: 72/M ROOM: RE05/15/[address]: Kiara Grant : 1950 BED: DIS: 05/15/2023 SPEC #: [id number] RECD: 05/15/23 12:49 STATUS: B[place] REQ #: [id number] KATERYNA: 05/15/23 07:[address]: Kiara Grant DEPT: Surgical Specimen RECD BY: Rosario Polanco ENTERED: 05/15/23 12:51 SP TYPE: Bowel OTHR DR: Lane Womack Tissues: 1 - BIOPSY BOWEL 2 - BIOPSY BOWEL 3 - BIOPSY BOWEL Procedures: GROSS AND MICRO LEVEL 4 Comments: [id number]
[2023-05-15 08:16] VITALS: BP 143/90; PULSE 68; RESP 22; TEMP 36.3; O2SAT 99
--- NOTE | 2023-05-15 08:21 | W.ANESPOSTOP ---
Postoperative Evaluation Date, Time and Location Date Performed: 05/15/23 Time Performed: 08:22 Patient Location: Day Surgery Unit Vital Signs Most Recent Imported Vital Signs: Most Recent Vital Signs Temp Pulse Resp BP Pulse Ox 36.5 C 76 16 155/93 H 99 05/15/23 06:29 05/15/23 06:29 05/15/23 06:29 05/15/23 06:29 05/15/23 06:29 Assessment Mental Status: Awake (Alert & Oriented to Patient Baseline) Airway and Respiratory Function: Patent airway with normal (patient baseline) respiratory exam Cardiovascular Function: Hemodynamically Stable Hydration Status: Adequately Hydrated Nausea & Vomiting: No Nausea or Vomiting Pain: Pt. Denies Any Pain Peripheral Nerve Block: Patient did not receive a nerve block
[2023-05-15 08:46] VITALS: BP 170/93; PULSE 66; RESP 20; TEMP 36.4; O2SAT 97
== END 2023-05-15 09:10 | disposition home or self-care (01) ==
LOC: SUR 06:04
PROVIDERS: PCP Family Medicine; Visit Provider Surgery
PROC: 0DJD8ZZ Inspection of Lower Intestinal Tract, Via Natural or Artificial Opening Endoscopic (ICD-10-PCS; CPT 45378; principal; 2023-05-15 07:30)
DX: Z12.11 Encounter for screening for malignant neoplasm of colon (principal); D12.4 Benign neoplasm of descending colon; Z86.010 Personal history of colon polyps; K21.9 Gastro-esophageal reflux disease without esophagitis; I10 Essential (primary) hypertension; K64.0 First degree hemorrhoids; K59.00 Constipation, unspecified; J44.9 Chronic obstructive pulmonary disease, unspecified; F10.21 Alcohol dependence, in remission
CPT/HCPCS: 45385; 45380; 88305; J2001; J2704

== ENCOUNTER → 2023-06-11 08:09 | Outpatient (BNVA) | payer MEDICARE, OTHER, SELFPAY | PROVIDERS: PCP Family Medicine; Referring Provider Family Medicine; Visit Provider Podiatrist ==

== ENCOUNTER 2023-06-25 11:46 | Outpatient (REF) | payer MEDICARE, OTHER, SELFPAY ==
[2023-06-25 15:21] LABS: Abs Immature Grans 0.03 10^3/uL (0.0-0.06); Absolute Basophil Count 0.08 10^3/uL (0.0-0.2); Absolute Eosinophil Count 0.61 10^3/uL (0.0-0.7); Absolute Monocyte Count 0.55 10^3/uL (0.1-0.8); Absolute Neutrophil Count 4.95 10^3/uL (1.2-6.7); Eosinophils % 7.4; HCT 40.9 % (40.0-50.0); HGB 13.8 g/dL (13.5-17.5); Immature Grans % 0.4; Lymphocytes % 24.3; MCH 30.3 pg (27.0-33.0); MCHC 33.7 % (32.0-36.0); MCV 90 fL (80-95); MPV 10.3 fL (8.0-11.0); Monocytes % 6.7; Neutrophils % 60.2; Platelet Count 261 10^3/uL (130-400); RBC 4.56 10^6/uL (4.36-5.78); RDW 12.1 % (11.8-14.1); WBC 8.22 10^3/uL (4.4-10.8)
[2023-06-25 15:43] LABS: ALT 42 U/L (16-63); AST 25 U/L (15-37); Alkaline Phosphatase 81 U/L (46-116); Anion Gap 9.4 mmol/L (3-11); BUN 19 mg/dL (7-18); Bilirubin, Total 0.4 mg/dL (0.2-1.0); CO2 29.6 mmol/L (21.0-32.0); Calcium 9.7 mg/dL (8.5-10.1); Chloride 105 mmol/L (98-107); Estimated GFR 79.47 (mL/min/1.73m2); Glucose 150 mg/dL (74-106); Potassium 3.6 mmol/L (3.5-5.1); Sodium 144 mmol/L (136-145); Total Protein 7.3 g/dL (6.4-8.2)
[2023-06-25 15:50] LABS: Hemoglobin A1C 6.7 % (<5.7)
== END 2023-06-25 11:47 | disposition home or self-care (01) ==
LOC: NCHCN 11:46
PROVIDERS: PCP Family Medicine; Visit Provider Family Medicine
DX: R73.03 Prediabetes (principal); F10.10 Alcohol abuse, uncomplicated; I10 Essential (primary) hypertension; E78.5 Hyperlipidemia, unspecified
CPT/HCPCS: 80053; 83036; 85025

== ENCOUNTER 2023-09-22 03:36 | Outpatient (CLI) | payer MEDICARE, OTHER, SELFPAY ==
[2023-09-22] MEDS: Levalbuterol HFA 15 GM INH 4 PUFF IH (09:39)
[2023-09-22] MEDS: Inhaler, Assist Device 1 EACH MC (09:39)
--- NOTE | 2023-09-29 09:34 | W.PFT ---
Date of service: 09/22/23 Time of Service: 08:22 Pulmonary Function Test Result Requesting Provider Lane Womack Indications: COPD Interpretation Spirometry: Mild decrease in FEV1/FVC. Normal FEV1. Lung Volumes: normal Diffusion Capacity: mild decrease in diffusion Impression normal spirometry, but tendency towards early obstruction based on decreased FEF 25-75%. Normal lung volumes and mild in diffusion. Flow volume curve suggests early obstruction. Clinical Correlation therefore is recommended.
== END 2023-09-22 03:37 | disposition home or self-care (01) ==
LOC: RT 03:36
PROVIDERS: PCP Family Medicine; Visit Provider Family Medicine
DX: J44.9 Chronic obstructive pulmonary disease, unspecified (principal)
CPT/HCPCS: 00123; 94060; 94726; 94729

== ENCOUNTER → 2023-10-07 08:22 | Outpatient (BNVA) | payer MEDICARE, OTHER, SELFPAY | PROVIDERS: PCP Student in an Organized Health Care Education/Training Program; Visit Provider Physician Assistant | DX: Z95.810 Presence of automatic (implantable) cardiac defibrillator (principal); I49.5 Sick sinus syndrome | CPT/HCPCS: 93280 ==

== ENCOUNTER 2023-10-29 22:51 | Outpatient (REF) | payer MEDICARE, OTHER, SELFPAY ==
[2023-10-29 15:49] LABS: Microalb ug/mg Crea 18.1 ug/mg Cr
== END 2023-10-29 22:52 | disposition home or self-care (01) ==
LOC: NCHCN 22:51
PROVIDERS: PCP Student in an Organized Health Care Education/Training Program; Visit Provider Student in an Organized Health Care Education/Training Program
DX: E11.9 Type 2 diabetes mellitus without complications (principal)
CPT/HCPCS: 82043; 82570

== ENCOUNTER → 2023-12-23 08:26 | Outpatient (BNVA) | payer MEDICARE, OTHER, SELFPAY | PROVIDERS: PCP Student in an Organized Health Care Education/Training Program; Referring Provider Student in an Organized Health Care Education/Training Program; Visit Provider Nurse Practitioner Family | DX: M79.675 Pain in left toe(s) (principal); M79.674 Pain in right toe(s); L60.3 Nail dystrophy; R20.2 Paresthesia of skin | CPT/HCPCS: 11721 ==

== ENCOUNTER 2024-02-16 08:53 | Outpatient (REF) | payer MEDICARE, OTHER, SELFPAY ==
[2024-02-16 14:41] LABS: BUN 16 mg/dL (7-18); CREATININE 1.1 mg/dL (0.70-1.30); Calcium 9.5 mg/dL (8.5-10.1); Chloride 104 mmol/L (98-107); Estimated GFR 70.44 (mL/min/1.73m2); Glucose 104 mg/dL (74-106); Potassium 3.9 mmol/L (3.5-5.1); Sodium 139 mmol/L (136-145)
== END 2024-02-16 08:54 | disposition home or self-care (01) ==
LOC: NCHCN 08:53
PROVIDERS: PCP Student in an Organized Health Care Education/Training Program; Visit Provider Student in an Organized Health Care Education/Training Program
DX: I71.40 Abdominal aortic aneurysm, without rupture, unspecified (principal)
CPT/HCPCS: 80048

== ENCOUNTER → 2024-02-26 09:18 | Outpatient (BNVA) | payer MEDICARE, OTHER, SELFPAY | PROVIDERS: PCP Student in an Organized Health Care Education/Training Program; Visit Provider Internal Medicine Cardiovascular Disease | DX: I25.10 Atherosclerotic heart disease of native coronary artery without angina pectoris (principal); Z95.0 Presence of cardiac pacemaker | CPT/HCPCS: 99213 ==

== ENCOUNTER 2024-03-02 01:40 | Outpatient (CLI) | payer MEDICARE, OTHER, SELFPAY ==
--- NOTE | 2024-03-02 | DI.CT_ITS ---
Exam(s) CT ABDOMEN PELVIS CTA EXAM: CT ABDOMEN PELVIS CTA CLINICAL HISTORY: ABD AORTIC ANEURYSM WO RUPTURE, I71.40. TECHNIQUE: Imaging Protocol: Axial computed tomography images with coronal and sagittal reformatted images were created and reviewed CONTRAST MATERIAL: Intravenous: Omnipaque 350 Contrast volume:100 ml Oral: None COMPARISON: CT CT ABDOMEN WO/W from 06/04/2021 FINDINGS: AORTA: There is an abdominal aortic EVAR again noted which extends from just below the renal arteries down i nto both common iliac arteries. Main compartment and both limbs of the endograft are patent without evidence of tight intra stent stenosis. There is mild circumferential noncalcified plaque within the right-sided limb of the EVAR, this where it crosses anteriorly to the other graft limb. The maximum diameter of the [place] aortic sac is 5.1 cm, unchanged from previous study of 06/04/2021. With respect to possible endoleaks, this study was not performed with endoleak protocol and therefore difficult to evaluate. There are no obvious leaks evident on this arterial phase only study. There are some densities evident outside of the graft within the [place] aortic sac but these appear unchan ged from the noninfused CT scan which was performed in May 2021 and therefore most probably represe nting calcification (as opposed to extravasation). There is no evidence of significant stenosis at t he distal anastomoses of the endo limb grafts with the distal common iliac arteries and no significan t stenosis at the junction of the common and external iliac arteries bilaterally. Some calcified camacho ques noted in both external iliac arteries but without tight stenoses in these vessels nor within the common femoral arteries. There is no choroidal material evident. There is mild focal fusiform aneu rysmal dilatation of the right internal iliac artery approximately 2 cm distal to its origin. Maximu m luminal diameter at this level is 7 mm. There is paucity of flow within the left internal iliac ar jeffrey which may be occluded. Above below the level of the graft the diameter of the abdominal aorta is 2.4 cm. There is no signif icant stenosis at the origin of the celiac and superior mesenteric arteries and no evidence of fillin g defect-intraluminal thrombus within the SMA. Some plaque is noted at the origin of the bilateral r enal arteries. No significant stenosis on the left side. On the right side there are 2 adjacent rig ht renal arteries also without significant stenosis. Both kidneys exhibit normal size. ABDOMEN There is no ascites. LIVER: There are no focal hepatic lesions nor dilatation of intrahepatic ducts. GALLBLADDER/BILIARY: No obvious gallbladder pathology. CBD is not dilated. PANCREAS: No evidence of pancreatic mass nor dilatation of the pancreatic duct. SPLEEN: Spleen is not enlarged. There are no intrasplenic lesions. Splenic and portal veins are madrigal nt. ADRENALS: Left adrenal gland unremarkable. There is a nodule in the right adrenal gland which measur es 2.4 by 1.8 cm, unchanged from May 2021 and probably a benign adenoma. KIDNEYS: Both kidneys exhibit normal size. Cortical cysts and exophytic cysts are noted in the left kidney, unchanged and not requiring further imaging workup. Largest of these cysts in the left kidne y measures 2 cm. There are no significant focal findings in the opposite-right kidney. No solid tatiana al lesions. There are no calculi nor hydronephrosis nor hydroureter.. LYMPH NODES: There is no retroperitoneal nor para-aortic adenopathy. No obvious mesenteric masses. ABDOMINAL WALL: No evidence of significant anterior abdominal wall hernia. GI: There is no evidence of bowel obstruction, free air, nor abscess. PELVIS: LYMPH NODES: There is no intrapelvic nor inguinal adenopathy. GI: No evidence of appendicitis.No evidence of sigmoid diverticulitis. URINARY BLADDER: There is diffuse thickening of the urinary bladder wall which is either related to c ystitis or under distension. Pelvic ureters are not dilated REPRODUCTIVE: The prostate gland is mildly enlarged OSSEOUS: No fractures nor significant osseous lesions. Mild disc space narrowing at L3-4 level noted . IMPRESSION: 1. 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 No tight stenosis . The size of the [place] aortic sac is 5.1 cm, unchanged from the previous 2021 CT study. 2. Please note that it is not possible to accurately detect for aortic graft endoleaks on a single se quence study. The densities seen within the [place] aortic sac are unchanged from the noninfused stud y of 06/04/2021 and are therefore probably calcium. 3. Stable 2.4 x 1.8 cm mass in the right adrenal gland unchanged from 2021 and most probably a benign adenoma. 4. Other findings as above. RADIATION DOSE DELIVERED: 264.45mGy.cm Total DLP DATA REPOSITORY: All CT scans at this facility are submitted to the National Radiology Data Registry (NRDR) Dose Index Registry (DIR) with the [employer] ([employer]). RADIATION OPTIMIZATION: All CT scans at this facility use at least one of these dose optimization te chniques: automated exposure control; mA and/or kV adjustment per patient size (includes targeted exa ms where dose is matched to clinical indication); or iterative reconstruction.
[2024-03-02 08:46] LABS: Estimated GFR 78.98 (mL/min/1.73m2)
[2024-03-02] MEDS: Omnipaque 350 MG/ML 100 ML BTL IJ (09:23)
[2024-03-02] MEDS: Normal Saline - Diluent 50 ML VIAL IJ (09:24)
== END 2024-03-02 02:00 ==
LOC: DI 01:40
PROVIDERS: PCP Student in an Organized Health Care Education/Training Program; Visit Provider Student in an Organized Health Care Education/Training Program
DX: I71.40 Abdominal aortic aneurysm, without rupture, unspecified (principal)
CPT/HCPCS: 36415; 74174; 82565; J3490

== ENCOUNTER 2024-04-06 08:00 | Outpatient (CLI) | payer MEDICARE, OTHER, SELFPAY ==
--- NOTE | 2024-04-06 08:00 | RT.EKG_ITS ---
APPROVED REPORT Exam: Resting ECG Reason for Exam: CAD Patient Location: O HR:69 bpm ECG Measurements Heart Rate 69 AXIS WA 150 P 263 QRSd 163 QRS -55 QT 446 T 100 QTc 478 Conclusion Atrial-ventricular dual-paced complexes...other complexes also detected No further analysis attempted due to paced rhythm Baseline wander in lead(s) I,II,aVR
== END 2024-04-06 08:01 | disposition home or self-care (01) ==
LOC: DI.CARD 08:01
PROVIDERS: PCP Student in an Organized Health Care Education/Training Program; Visit Provider Student in an Organized Health Care Education/Training Program
DX: I25.10 Atherosclerotic heart disease of native coronary artery without angina pectoris (principal); Z95.0 Presence of cardiac pacemaker
CPT/HCPCS: 93010

== ENCOUNTER → 2024-04-06 08:22 | Outpatient (BNVA) | payer MEDICARE, OTHER, SELFPAY | PROVIDERS: PCP Student in an Organized Health Care Education/Training Program; Visit Provider Student in an Organized Health Care Education/Training Program | DX: Z95.810 Presence of automatic (implantable) cardiac defibrillator (principal); R94.31 Abnormal electrocardiogram [ECG] [EKG]; I49.5 Sick sinus syndrome | CPT/HCPCS: 93005; 93280 ==

== ENCOUNTER → 2024-04-29 07:56 | Outpatient (BNVA) | payer MEDICARE, OTHER, SELFPAY | PROVIDERS: PCP Student in an Organized Health Care Education/Training Program; Referring Provider Student in an Organized Health Care Education/Training Program; Visit Provider Urology | DX: N40.1 Benign prostatic hyperplasia with lower urinary tract symptoms (principal); N13.8 Other obstructive and reflux uropathy; N39.41 Urge incontinence | CPT/HCPCS: 76857; 81003; 99213 ==

== ENCOUNTER → 2024-05-10 08:25 | Outpatient (BNVA) | payer MEDICARE, OTHER, SELFPAY | PROVIDERS: PCP Student in an Organized Health Care Education/Training Program; Referring Provider Student in an Organized Health Care Education/Training Program; Visit Provider Podiatrist | DX: B07.0 Plantar wart (principal); L84 Corns and callosities; Z51.89 Encounter for other specified aftercare; L60.3 Nail dystrophy; M79.674 Pain in right toe(s); M79.675 Pain in left toe(s); B35.1 Tinea unguium; I73.89 Other specified peripheral vascular diseases; R20.8 Other disturbances of skin sensation | CPT/HCPCS: 11055; 11721; 17110 ==

== ENCOUNTER → 2024-06-08 07:53 | Outpatient (BNVA) | payer MEDICARE, OTHER, SELFPAY | PROVIDERS: PCP Student in an Organized Health Care Education/Training Program; Referring Provider Student in an Organized Health Care Education/Training Program; Visit Provider Podiatrist | DX: B07.0 Plantar wart (principal); L84 Corns and callosities; L60.3 Nail dystrophy; M79.674 Pain in right toe(s); M79.675 Pain in left toe(s); B35.1 Tinea unguium; L85.8 Other specified epidermal thickening; L60.2 Onychogryphosis; S90.222A Contusion of left lesser toe(s) with damage to nail, initial encounter; S90.221A Contusion of right lesser toe(s) with damage to nail, initial encounter; X58.XXXA Exposure to other specified factors, initial encounter; E11.42 Type 2 diabetes mellitus with diabetic polyneuropathy | CPT/HCPCS: 11055; 17110 ==

== ENCOUNTER 2024-08-12 20:08 | Outpatient (REF) | payer MEDICARE, OTHER, SELFPAY ==
[2024-08-12 16:27] LABS: COMMENT (LAB VIEW ONLY) 99.37 mg/dL; Microalb ug/mg Crea 21.4 ug/mg Cr
== END 2024-08-12 20:09 | disposition home or self-care (01) ==
LOC: NCHCN 20:08
PROVIDERS: PCP Student in an Organized Health Care Education/Training Program; Visit Provider Student in an Organized Health Care Education/Training Program
DX: E11.9 Type 2 diabetes mellitus without complications (principal)
CPT/HCPCS: 82043; 82570

== ENCOUNTER → 2024-08-24 08:26 | Outpatient (BNVA) | payer MEDICARE, OTHER, SELFPAY | PROVIDERS: PCP Student in an Organized Health Care Education/Training Program; Referring Provider Student in an Organized Health Care Education/Training Program; Visit Provider Podiatrist | DX: B07.0 Plantar wart (principal); L60.3 Nail dystrophy; L84 Corns and callosities; B35.1 Tinea unguium; G62.9 Polyneuropathy, unspecified; G60.3 Idiopathic progressive neuropathy; G60.9 Hereditary and idiopathic neuropathy, unspecified; L65.9 Nonscarring hair loss, unspecified; R20.8 Other disturbances of skin sensation; R23.8 Other skin changes; L60.2 Onychogryphosis; L60.8 Other nail disorders; L85.8 Other specified epidermal thickening | CPT/HCPCS: 11055; 11721 ==

== ENCOUNTER 2024-08-29 13:58 | Outpatient (REF) | payer MEDICARE, OTHER, SELFPAY ==
[2024-08-29 15:25] LABS: HGB 14.5 g/dL (13.5-17.5); MCH 29.8 pg (27.0-33.0); MCHC 33.7 % (32.0-36.0); MCV 89 fL (80-95); MPV 10.2 fL (8.0-11.0); Platelet Count 270 10^3/uL (130-400); RBC 4.86 10^6/uL (4.36-5.78); RDW 12.7 % (11.8-14.1); WBC 9.26 10^3/uL (4.4-10.8)
[2024-08-29 16:55] LABS: ALT 38 U/L (16-63); AST 22 U/L (15-37); Albumin 4.3 g/dL (3.4-5.0); Alkaline Phosphatase 85 U/L (46-116); Anion Gap 9.3 mmol/L (3-11); BUN 22 mg/dL (7-18); Bilirubin, Total 0.3 mg/dL (0.2-1.0); CO2 28.7 mmol/L (21.0-32.0); CREATININE 1.1 mg/dL (0.70-1.30); Chloride 103 mmol/L (98-107); Estimated GFR 70.44 (mL/min/1.73m2); Glucose 106 mg/dL (74-106); Potassium 3.8 mmol/L (3.5-5.1); Sodium 141 mmol/L (136-145); Total Protein 7.4 g/dL (6.4-8.2); Vitamin B12 1293 pg/mL (193-986)
[2024-08-29 16:56] LABS: Folate > 20.0 ng/mL (8.6-20.0)
== END 2024-08-29 13:59 | disposition home or self-care (01) ==
LOC: NCHCN 13:58
PROVIDERS: PCP Student in an Organized Health Care Education/Training Program; Visit Provider Student in an Organized Health Care Education/Training Program
DX: G62.1 Alcoholic polyneuropathy (principal)
CPT/HCPCS: 80053; 85027; 82607; 82746

== ENCOUNTER 2024-09-14 09:17 | Outpatient (REF) | payer MEDICARE, OTHER, SELFPAY ==
[2024-09-14 16:21] LABS: Anion Gap 9.9 mmol/L (3-11); BUN 19 mg/dL (7-18); CO2 27.1 mmol/L (21.0-32.0); Calcium 9.7 mg/dL (8.5-10.1); Chloride 104 mmol/L (98-107); Estimated GFR 78.98 (mL/min/1.73m2); Glucose 95 mg/dL (74-106); Potassium 3.8 mmol/L (3.5-5.1); Sodium 141 mmol/L (136-145)
== END 2024-09-14 09:18 | disposition home or self-care (01) ==
LOC: NCHCN 09:17
PROVIDERS: PCP Student in an Organized Health Care Education/Training Program; Visit Provider Student in an Organized Health Care Education/Training Program
DX: I10 Essential (primary) hypertension (principal)
CPT/HCPCS: 80048

== ENCOUNTER 2024-11-11 00:28 | Outpatient (CLI) | payer MEDICARE, OTHER, SELFPAY ==
[2024-11-11 08:42] LABS: Anion Gap 12.6 mmol/L (3-11); BUN 21 mg/dL (7-18); CO2 25.4 mmol/L (21.0-32.0); Calcium 9.4 mg/dL (8.5-10.1); Chloride 101 mmol/L (98-107); Estimated GFR 89.62 (mL/min/1.73m2); Glucose 103 mg/dL (74-106); Potassium 3.9 mmol/L (3.5-5.1); Sodium 139 mmol/L (136-145)
== END 2024-11-11 00:29 | disposition home or self-care (01) ==
LOC: LBO 00:28
PROVIDERS: PCP Student in an Organized Health Care Education/Training Program; Visit Provider Student in an Organized Health Care Education/Training Program
DX: I10 Essential (primary) hypertension (principal)
CPT/HCPCS: 36415; 80048

== ENCOUNTER 2024-12-14 15:00 | Outpatient (REF) | payer MEDICARE, OTHER, SELFPAY ==
[2024-12-14 16:44] LABS: Anion Gap 9.4 mmol/L (3-11); BUN 20 mg/dL (7-18); CO2 29.6 mmol/L (21.0-32.0); Calcium 10.3 mg/dL (8.5-10.1); Chloride 98 mmol/L (98-107); Estimated GFR 89.62 (mL/min/1.73m2); Glucose 92 mg/dL (74-106); Potassium 4.2 mmol/L (3.5-5.1); Sodium 137 mmol/L (136-145); Vitamin B12 741 pg/mL (193-986)
== END 2024-12-14 15:01 | disposition home or self-care (01) ==
LOC: NCHCN 15:00
PROVIDERS: PCP Student in an Organized Health Care Education/Training Program; Visit Provider Student in an Organized Health Care Education/Training Program
DX: G62.9 Polyneuropathy, unspecified (principal); I10 Essential (primary) hypertension
CPT/HCPCS: 80048; 82607

== ENCOUNTER → 2024-12-26 08:30 | Outpatient (BNVA) | payer MEDICARE, OTHER, SELFPAY | PROVIDERS: PCP Student in an Organized Health Care Education/Training Program; Referring Provider Student in an Organized Health Care Education/Training Program; Visit Provider Podiatrist | DX: B07.0 Plantar wart (principal); L60.3 Nail dystrophy; L84 Corns and callosities; B35.1 Tinea unguium; G62.9 Polyneuropathy, unspecified; G60.3 Idiopathic progressive neuropathy; R09.89 Other specified symptoms and signs involving the circulatory and respiratory systems; L65.9 Nonscarring hair loss, unspecified; R20.8 Other disturbances of skin sensation; R23.4 Changes in skin texture; L60.2 Onychogryphosis; L60.8 Other nail disorders; L85.8 Other specified epidermal thickening | CPT/HCPCS: 11056; 11721 ==

== ENCOUNTER → 2025-02-22 08:51 | Outpatient (BNVA) | payer MEDICARE, OTHER, SELFPAY | PROVIDERS: PCP Student in an Organized Health Care Education/Training Program; Referring Provider Student in an Organized Health Care Education/Training Program; Visit Provider Registered Nurse | DX: I49.5 Sick sinus syndrome (principal); Z45.018 Encounter for adjustment and management of other part of cardiac pacemaker | CPT/HCPCS: 93280 ==